=== PATIENT | male | born 1985 | race Caucasian/White ===

== ENCOUNTER 2022-03-06 13:40 | Outpatient (REF) | payer BC, SELFPAY ==
[2022-03-06 14:31] LABS: Hematocrit 44.1 % (42.0-52.0); Hemoglobin 15.2 g/dl (14.0-18.0); Mean Corpuscular HGB Conc 34.5 g/dl (31.0-36.0); Mean Corpuscular Hemoglobin 32.3 pg (27.0-33.0); Mean Corpuscular Volume 93.6 fL (80.0-98.0); Mean Platelet Volume 12.7 fL (9.4-12.4); Platelet Count 169 X10*3/uL (160-400); Red Blood Count 4.71 X10*6/uL (4.60-5.80); Red Cell Distribution Width 11.8 % (11.0-16.0); White Blood Count 6.9 X10*3/uL (4.8-10.8)
[2022-03-06 16:09] LABS: Alanine Aminotransferase 17 U/L (0-40); Albumin Level 4.8 g/dL (3.5-5.0); Alkaline Phosphatase 40 U/L (39-117); Anion Gap 14 (12-20); Aspartate Amino Transferase 17 U/L (5-37); Bilirubin Total 0.6 mg/dL (0.0-1.0); Blood Urea Nitrogen 23 mg/dL (9-16); Calcium 9.9 mg/dL (8.4-10.2); Carbon Dioxide 27 mmol/L (22-29); Chloride 104 mmol/L (96-108); Estimated Glomerular Filt Rate > 60; Glucose Random 88 mg/dL (60-115); Potassium 4.4 mmol/L (3.3-5.1); Sodium 141 mmol/L (135-145); Total Protein 7.8 g/dL (6.5-8.0)
[2022-03-07 07:30] LABS: ~HepC Num1 0.16 S/CO (0.00-0.79); ~Hepatitis C Antibody Nonreactive (Nonreactive)
== END 2022-03-06 13:41 | disposition home or self-care (01) ==
LOC: HO.LAB 13:40
PROVIDERS: PCP Registered Nurse; Visit Provider Internal Medicine
DX: K92.1 Melena (principal)
CPT/HCPCS: 36415; 80053; 85027; 86803

== ENCOUNTER 2024-06-12 09:32 | Outpatient (AMB) | payer BC, SELFPAY ==
[2024-06-12 09:41] VITALS: BP 128/77; PULSE 83; O2SAT 99; BMI 39.2
--- NOTE | 2024-06-12 09:41 | MHC.OFFVIS ---
Vital Signs 06/12/24 09:41 Height 5 ft 7 in Weight 250 lb 3.594 oz BMI 39.2 BP 128/77 Blood Pressure Location Lt brachial Position Sitting Pulse 83 Pulse Source Doppler Pulse Oximetry (%) 99 Oxygen Delivery Method Room Air Intake Visit Reasons: asthma Allergies cat dander Allergy (Mild, Verified 06/12/24 09:45) Unknown HPI HPI asthma: Details: 38-year-old gentleman, vaping, but trying to quit, with underlying history of exercise induced asthma since teenage years, KULDIP on CPAP referred for evaluation pulmonary complaints. Patient states that over the last 2-3 months he has been having persistent bronchitic symptoms with cough, sputum production, and intermittent wheezing, only somewhat relieved by his albuterol MDI. 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 Patient does have family history of asthma in his mother. He currently has rabbit as a pet. Patient does have significant environmental allergies that get worse around spring time. PFS Surgical History Hx of vasectomy Family History Paternal Grandfather Colon cancer Social History (Updated 06/12/24 @ 09:47 by TAWANA Raines) Patient Tobacco Use Status: Never used Tobacco e-Cigarette/Vaping Use: Currently Using Review of Systems Const Denies daytime sleepiness, Denies excessive sweating, Denies fatigue, Denies fever(s), Denies lethargy, Denies malaise, Denies night sweats, Denies snoring and Denies weight loss Eyes Denies blurry vision and Denies itchy eyes ENT Denies nasal congestion, Denies post nasal drip, Denies sinus pain, Denies sinus pressure and Denies other ( Thrush) Card Denies chest pain, Denies pedal edema, Denies dyspnea, Denies orthopnea and Denies paroxysmal nocturnal dyspnea Resp Reports cough, Denies hemoptysis, Reports excessive phlegm production, Denies dyspnea, Denies snoring and Reports wheezing GI Denies abdominal pain and Denies heartburn Musc Denies myalgias, Denies arthralgias and Denies joint swelling Skin/Breast Denies rash Neuro Denies memory loss and Denies seizure-like activity Psych Denies abnormal sleep pattern, Denies anxiety and Denies memory loss Endo Denies excessive sweating, Denies fatigue and Denies heat intolerance Naveen/Lymph Denies easy bruising Aller/Immun Denies itchy eyes, Denies seasonal rhinorrhea and Reports wheezing Physical Exam Vital Signs: Last Vital Signs Pulse 83 06/12/24 09:41 BP 128/77 06/12/24 09:41 Pulse Ox 99 06/12/24 09:41 Oxygen Delivery Method Room Air 06/12/24 09:41 BMI result Body Mass Index 39.2 Const General: no acute distress and alert Nutritional Appearance: not obese Orientation/consciousness: Other orientation findings ( oriented) HEENT Head: Yes atraumatic Eyes General: appearance normal, both eyes and all related structures Sclerae: sclerae normal EOM: EOMs intact bilaterally Neck Neck: Yes supple Lymphatic: no lymphadenopathy noted Resp Effort & Inspection: normal respiratory effort and no use of accessory muscles Auscultation: clear to auscultation bilaterally Cardio Rate: regular rate Rhythm: regular rhythm Heart sounds: no gallops, no murmurs and no rubs Skin General skin exam: other ( warm) Extrem General: No clubbing, No cyanosis and No edema Assessment & Plan Assessment & Plan (1) Asthma: Code(s): J45.909 - Unspecified asthma, uncomplicated Category: Medical Plan: Likely asthma of unclear severity suboptimally controlled on albuterol MDI. Will add Breo and obtain full PFT. Will treat bronchitic exacerbation with a course of azithromycin and prednisone. (2) Environmental allergies: Code(s): Z91.09 - Other allergy status, other than to drugs and biological substances Category: Medical Plan: Will obtain IgE level, CBC with differential, and RAST panel for further evaluation. Orders: Orders Resp Allergy Profile Region I Today J45.909 - Unspecified asthma, uncomplicated, Z91.09 - Other allergy status, other than to drugs and biological substances Complete Blood Count Auto Diff Today Z91.09 - Other allergy status, other than to drugs and biological substances PFT pulmonary function test Today J45.909 - Unspecified asthma, uncomplicated Medications: New fluticasone furoate-vilanterol 200-25 mcg/dose (Breo Ellipta) 1 inh inhalation DAILY 1 ea 6RF J45.909 - Unspecified asthma, uncomplicated azithromycin For 250 mg dose pack: take 500 mg today (day 1), then 250 mg for 4 days (days 2-5) PO 6 tabs 0RF J45.909 - Unspecified asthma, uncomplicated prednisone 40 mg (2 x 20 mg) PO DAILY 10 tabs 0RF J45.909 - Unspecified asthma, uncomplicated Coding Level of Care Code New Pt Level 4 (18543) Diagnoses Asthma J45.909 Environmental allergies Z91.09
--- OUTSIDE RECORDS SUMMARY | 2024-06-12 10:03 | XMS_ITS ---
Author Organization [facility] Address [address], [place] [id number] Care Team Providers Care Bet Taker Name Role Phone FELIX ZHAO Primary Care Provider Rylee Alas Unavailable [phone] ALLERGIES Allergen (clinical drug ingredient) Drug/Non Drug Allergy documented on EMR Reaction Allergy Type Onset Date Status Methotrexate stomach upset , Severity Observation:Mod erate , Drug Allergy Active lumateperone Caplyta panic attack/ sweating Drug Allergy Active REASON FOR REFERRAL Reason Sleep study to [facility] please. History of KULDIP with needing CPAP- has been lost to follow-up Diagnosis 1 Obstructive sleep ap jesu (G47.33) Referral Organization [facility] Referring Provider First Name Rylee Referring Provider Last Name Bishop Referring Provider Speciality Nurse Miguel mcnamara Referred Organization [facility] Referred Address [address], [id number], Referred Provider Specialty Sleep Medici ne General Notes BOWEN, PAUL 0 08/15/2023 03:03:40 PM >appt request, neuro diagnostic form, demographics, insurance info, referral and office note faxed to [facility] [phone] Referral Priority Routine REASON FOR VISIT f/u meds MEDICATIONS Medication SIG (Take, Route, Frequency, Duration) Notes Start Date End Date Status Propranolol HCl 10 MG TAKE 1 TABLET BY MOUTH TWICE A DAY NEEDED for 90 Active Rosuvastatin Calcium 40 MG TAKE 1 TABLET BY MOUTH EVERY DAY FOR 90 DAYS for 90 Active Benzonatate 100 MG 3 x a day Oral benzonatate 1 00 mg capsule 03/27/2022 Active Famotidine 40 MG 1 tablet at bedtime Orally Once a day for 30 day(s) 08/13/2023 Active Divalproex Sodium 500 MG TAKE 1 TAB BY MOUTH IN THE MORNING AND 2 TABS DAILY AT BEDTIME for 60 Active Betamethasone Dipropionate 0.05 % 1 application Externally Once a day for 30 days 08/31/2022 Active ProAir HFA 108 (90 Base) MCG/ACT Inhalation albuterol sulfate HFA 90 mcg/actuation aerosol inhaler *Reorder from Rently[employer] for eRx and Interaction Alerts* 02/01/2022 Active CoQ-10 100 MG 1 capsule Orally once a day for 90 days 09/26/2022 Active Vitamin D-3 125 MCG (5000 UT) Take one tablet by mouth once daily. Oral Vitamin D3 125 mcg (5,000 unit) tablet 02/22/2022 Active cloNIDine HCl 0.1 MG 1 tablet Orally Once a day for 30 day(s) 08/13/2023 Active Ashwagandha 500 MG as directed Orally Active Fluticasone Propionate 50 MCG/ACT 1 spray in each nostril Nasally Once a day Active SOCIAL HISTORY Tobacco Use: Social History Observation Description Date Details (start date - stop date) Former Smoker NA - 08/23/2017 Sex Assigned At : Social History Observation Description Sex Assigned At Unknown Household Question Answer Notes Marital status: Tobacco Use/Smoking Question Answer Notes Tobacco use: former smoker When did you stop smoking? 08/23/2017 Sexual History Question Answer Notes Had sex in the past 12 months (vaginal, oral, or anal)? Yes with Women only PROBLEMS Problem Type ICD Code Onset Dates Problem Status W/U Status Risk SNOMED Code Notes Problem Obstructive sleep apnea (G47.33) Active confirmed 78820382 Problem Gastroesophageal reflux disease without esophagitis (K21.9) Active confirmed 339273079 VITAL SIGNS Blood pressure systolic 142 mm Hg 08/13/19 24 Blood pressure diastolic 92 mm Hg 024 Heart Rate 69 /min 08/13/2023 Height 67 in 08/13/2023 Weight 229.6 lbs 08/13/2023 BMI 35.96 kg/m2 08/13/2023 Oximetry 98 % 08/13/2023 Height-cm 170.18 cm 08/13/2023 Weight-kg 104.14 kg 08/13/2023 PROCEDURES Procedure Date Ordered Date Performed Result Body Sit e POLYSOMNOGRAPHY W/CPAP 08/13/2023 N/A Encounters Encounter Location Date Provider Diagnosis [address], [place] [id number] 08/13/2023 Rylee Alas Obstructive sleep ap jesu G47.33 ; Gastroesophageal reflux disease without esophagitis K21.9 ; Essential (primary) hypertension I10 and Encounter for screening for depression Z13.31 ASSESSMENTS Encounter Date Diagnosis Assessment Notes Treatment Notes Treatment Clinical Notes Section Notes 08/13/2023 Obstructive sleep apnea (ICD-10 - G47.33) Compliant with CPAP/BiPap mask Continue plan of care 08/13/2023 Gastroesophageal reflux disease without esophagitis (ICD-10 - K21.9) Gastroesophageal reflux disease (GERD) is an extremely common condition, affecting nearly one in five [place] adults at least weekly and nearly one in ten daily. It affects women more commonly than men, and the peak ages are from 30 to 60. Symptoms of GERD occur due to esophageal irritation from acidic stomach contents (including pepsin and sometimes bile acids) contacting the esophagus through the lower esophageal sphincter (LES). A variety of symptoms can occur: Retrosternal discomfort (e.g. pain, burning) Acid regurgitation Nausea and/or vomiting Laryngitis Cough Dental erosions Wheezing Difficulty swallowing Normally, the LES only relaxes when one is swallowing food. Otherwise, it has enough tone to limit retrograde flow of acidic contents into the esophagus. With long-term acid exposure, the esophagus may become inflamed (esophagitis) and constrict (stricture), and it can also develop columnar metaplasia (Geiger's esophagus) or adenocarcinoma. There are many factors that cause GERD, and these should be systematically evaluated when creating a treatment plan that aims to cure rather than just treat this disease. The quality of life burden is significant and may be greater than that of congestive heart failure, coronary heart disease, and diabetes. Although the LES itself may appear to be the site of dysfunction, it may not play the primary role in GERD pathogenesis. The problem may be downstream, due to increased intra-abdominal pressure (e.g. from obesity, , restrictive clothing, ascites). It may also be caused by poor GI motility (gastroparesis) or from forces that challenge normal forward motility (recumbent position, bending over). It may also be due to compromised esophageal mucosal barrier (e.g. from low saliva production). This etiology is often overlooked; one study showed that when acid is infused directly into the esophagus, 88% of those with GERD were symptomatic, whereas only 15% of controls without known GERD had symptoms. Studies using proton pump inhibitors (PPIs) and histamine-2 (H2) antagonists show significant benefits in their placebo groups. This supports the notion that the mind has significant potential to affect GERD symptoms. In a large meta-analysis, placebo rates averaged about 20% for pharmaceuticals, indicating that any GERD intervention that one expects benefit will provide a positive response for one in five people independent of the mechanism of action. Creating this positive expectation through a therapeutic clinical relationship can therefore be an important aspect of developing a Personal Health Plan(PHP). Will start Famotidine to see if this helps with symptoms Will order H.Pylori with labs- he will have them done before he leaves today 08/13/2023 Essential (primary) hypertension (ICD-10 - I10) Treatment of hypertension should involve nonpharmacologic therapy (also called lifestyle modification). Dietary salt restriction - In well-controlled randomized trials, the overall impact of moderate sodium reduction is a fall in blood pressure in hypertensive and normotensive individuals of 4.8/2.5 and 1.9/1.1 mmHg, respectively. Weight loss - Weight loss in overweight or obese individuals can lead to a significant fall in blood pressure independent of exercise. DASH diet - The Dietary Approaches to Stop Hypertension (DASH) dietary pattern is high in vegetables, fruits, low-fat dairy products, whole grains, poultry, fish, and nuts and low in sweets, sugar-sweetened beverages, and red meats. The DASH dietary pattern is consequently rich in potassium, magnesium, calcium, protein, and fiber but low in saturated fat, total fat, and cholesterol. Combining the DASH dietary pattern with modest sodium restriction produced an additive antihypertensive effect. Exercise - Aerobic, dynamic resistance and isometric resistance exercise can decrease systolic and diastolic pressure by, on average, 4 to 6 mmHg and 3 mmHg, respectively, independent of weight loss. Limited alcohol intake - Women who consume two or more alcoholic beverages per day and men who have three or more drinks per day have a significantly increased incidence of hypertension compared with nondrinkers. 08/13/2023 Encounter for screening for depression (ICD-10 - Z13.31) PHQ9 Score: 21 Severe risk for major depressive disorder. Denies SI/HI Will add medication- close FU 4 weeks PLAN OF TREATMENT Medication Medication Name Sig Start Date Stop Date Notes Famotidine 40 MG 1 tablet at bedtime Orally Once a day for 30 day(s) 08/13/2023 cloNIDine HCl 0.1 MG 1 tablet Orally Onc e a day for 30 day(s) 08/13/2023 Treatment Notes Assessment Notes Obstructive sleep apnea Compliant with CPAP/BiPap mask Continue plan of care Gastroesophageal reflux dise ase without esophagitis Gastroesophageal reflux disease (GERD) is an extremely common condition, affecting nearly one in five [place] adults at least weekly and nearly one in ten daily. It affects women more commonly than men, and the peak ages are from 30 to 60. Symptoms of GERD occur due to esophageal irritation from acidic stomach contents (including pepsin and sometimes bile acids) contacting the esophagus through the lower esophageal sphincter (LES). A variety of symptoms can occur: Retrosternal discomfort (e.g. pain, burning) Acid regurgitation Nausea and/or vomiting Laryngitis Cough Dental erosions Wheezing Difficulty swallowing Normally, the LES only relaxes when one is swallowing food. Otherwise, it has enough tone to limit retrograde flow of acidic contents into the esophagus. With long-term acid exposure, the esophagus may become inflamed (esophagitis) and constrict (stricture), and it can also develop columnar metaplasia (Geiger's esophagus) or adenocarcinoma. There are many factors that cause GERD, and these should be systematically evaluated when creating a treatment plan that aims to cure rather than just treat this disease. The quality of life burden is significant and may be greater than that of congestive heart failure, coronary heart disease, and diabetes. Although the LES itself may appear to be the site of dysfunction, it may not play the primary role in GERD pathogenesis. The problem may be downstream, due to increased intra-abdominal pressure (e.g. from obesity, , restrictive clothing, ascites). It may also be caused by poor GI motility (gastroparesis) or from forces that challenge normal forward motility (recumbent position, bending over). It may also be due to compromised esophageal mucosal barrier (e.g. from low saliva production). This etiology is often overlooked; one study showed that when acid is infused directly into the esophagus, 88% of those with GERD were symptomatic, whereas only 15% of controls without known GERD had symptoms. Studies using proton pump inhibitors (PPIs) and histamine-2 (H2) antagonists show significant benefits in their placebo groups. This supports the notion that the mind has significant potential to affect GERD symptoms. In a large meta-analysis, placebo rates averaged about 20% for pharmaceuticals, indicating that any GERD intervention that one expects benefit will provide a positive response for one in five people independent of the mechanism of action. Creating this positive expectation through a therapeutic clinical relationship can therefore be an important aspect of developing a Personal Health Plan(PHP). Will start Famotidine to see if this helps with symptoms Will order H.Pylori with labs- he will have them done before he leaves today Essential (primary) hypertension Treatment of hypertension should involve nonpharmacologic therapy (also called lifestyle modification). Dietary salt restriction - In well-controlled randomized trials, the overall impact of moderate sodium reduction is a fall in blood pressure in hypertensive and normotensive individuals of 4.8/2.5 and 1.9/1.1 mmHg, respectively. Weight loss - Weight loss in overweight or obese individuals can lead to a significant fall in blood pressure independent of exercise. DASH diet - The Dietary Approaches to Stop Hypertension (DASH) dietary pattern is high in vegetables, fruits, low-fat dairy products, whole grains, poultry, fish, and nuts and low in sweets, sugar-sweetened beverages, and red meats. The DASH dietary pattern is consequently rich in potassium, magnesium, calcium, protein, and fiber but low in saturated fat, total fat, and cholesterol. Combining the DASH dietary pattern with modest sodium restriction produced an additive antihypertensive effect. Exercise - Aerobic, dynamic resistance and isometric resistance exercise can decrease systolic and diastolic pressure by, on average, 4 to 6 mmHg and 3 mmHg, respectively, independent of weight loss. Limited alcohol intake - Women who consume two or more alcoholic beverages per day and men who have three or more drinks per day have a significantly increased incidence of hypertension compared with nondrinkers. Encounter for screening for depression PHQ9 Score: 21 Severe risk for major depressive disorder. Denies SI/HI Will add medication- close FU 4 weeks Pending Test Test Name Order Date POLYSOMNOGRAPHY W/CPAP 08/13/2023 Future Test Test Name Order Date HELICOBACTER PYLORI, UREA BREATH TEST ([id number]) 08/13/2023 Referrals Referral Date Details Sleep study to [facility] please. History of KULDIP with needing CPAP- has been lost to follow-up , [address] [place] [address], [place], [place], [phone], @[employer], Next Appt Details Follow Up: 2 Weeks, Reason: Medication change- tele Progress Notes * RAMIRO LAGUNADOB:1985 (37 yo M)Acc No.[id number]:08/13/2023 Progress Notes Patient:??RAMIRO LAGUNA Provider:??Rylee Alas DNP :1985?Age:37 Y?Sex:Ma le Date:08/13/2023 Phone: Address: [address], [facility] [place], [id number] Pcp:FELIX ZHAO Subjective: * Chief Complaints: * ?F/u meds * HPI: ?Patient Care Team:? Therapist- Dr Cat Gore [place]. ?Visit info:? Ramiro presents today for f/u med review. ?He states he has been vomiting Q a.m. for past 6 months - mostly bile/phlegm. No known cause. He does take Rosuvastatin and Divalproex in evening and will taste the medication in a.m. with vomiting. Usually is just one episode of vomiting. Ramiro also states that his anxiety has been through the roof - mostly work related. Depression escalates with increased anxiety, and notes chest pains recently as well. He's unsure if needs Rx dose adjustment or change to help alleviate symptoms. ?PHQ9 provided to patient for completion. ?Chest tightness occasionally- comes and goes- dull ?Ringing in right ear and associated headache-daily headaches for the last couple of weeks ?Continuously feels like his body is vibrating ?Sleep apnea- states that he has a very old machine and has not followed up with sleep medicine in years- which could be contributing to many of his symtpoms. ?Can't think- losing short term memory. * ROS:?all systems reviewed and are non-contributory unless specified in the HPI. * Medical History:?? * Surgical History:??vasectomy 26 broken bones in past (Sports) * Hospitalization/Major Diagno stic Procedure:?? * Family History:??Father: Hea rt Disease , Other CA .??Siblings: brother: brother:Allergic to Pectin .??Mother: Heart Disease , Asthma , High Cholesterol .??Paternal Grandfather: Colon CA .??Paternal Grandmother: Dementia .??Maternal Grandfather: Heart Disease .??Maternal Grandmother: Alzheimer's .?? * Social History:?Drugs/Alcohol:??Drugs??Have you used drugs other than those for medical reasons in the past 12 months???No.??Do you smoke marijuana?: Denies. Do you drink alcohol?: Socially. ?Household:??Household??Marital status:??.?Miscellaneous:??Occupation: works full-time; constuction. * Medications:??TakingFluticas one Propionate 50 MCG/ACT Suspension 1 spray in each nostril Nasally Once a day Ashwagandha 500 MG Capsule as directed Orally CoQ-10 100 MG Capsule 1 capsule Orally once a day Betamethasone Dipropionate 0.05 % Ointment 1 application Externally Once a day ProAir HFA 108 (90 Base) MCG/ACT Aerosol Solution Inhalation , Notes to Pharmacist: albuterol sulfate HFA 90 mcg/actuation aerosol inhaler *Reorder from [employer] for eRx and Interaction Alerts*Vitamin D-3 125 MCG (5000 UT) Tablet Take one tablet by mouth once daily. Oral , Notes to Pharmacist: Vitamin D3 125 mcg (5,000 unit) tabletBenzonatate 100 MG Capsule 3 x a day Oral , Notes to Pharmacist: benzonatate 100 mg capsulePropranolol HCl 10 MG Tablet TAKE 1 TABLET BY MOUTH TWICE A DAY NEEDED Rosuvastatin Calcium 40 MG Tablet TAKE 1 TABLET BY MOUTH EVERY DAY FOR 90 DAYS Divalproex Sodium 500 MG Tablet Delayed Release TAKE 1 TAB BY MOUTH IN THE MORNING AND 2 TABS DAILY AT BEDTIME Medication List reviewed and reconciled with the patientTaking Fluticasone Propionate 50 MCG/ACT Suspension 1 spray in each nostril Nasally Once a day Taking Ashwagandha 500 MG Capsule as directed Orally Taking CoQ-10 100 MG Capsule 1 capsule Orally once a day Taking Betamethasone Dipropionate 0.05 % Ointment 1 application Externally Once a day Taking ProAir HFA 108 (90 Base) MCG/ACT Aerosol Solution Inhalation , Notes to Pharmacist: albuterol sulfate HFA 90 mcg/actuation aerosol inhaler *Reorder from [employer]ently[employer] for eRx and Interaction Alerts*Taking Vitamin D-3 125 MCG (5000 UT) Tablet Take one tablet by mouth once daily. Oral , Notes to Pharmacist: Vitamin D3 125 mcg (5,000 unit) tabletTaking Benzonatate 100 MG Capsule 3 x a day Oral , Notes to Pharmacist: benzonatate 100 mg capsuleTaking Propranolol HCl 10 MG Tablet TAKE 1 TABLET BY MOUTH TWICE A DAY NEEDED Taking Rosuvastatin Calcium 40 MG Tablet TAKE 1 TABLET BY MOUTH EVERY DAY FOR 90 DAYS Taking Divalproex Sodium 500 MG Tablet Delayed Release TAKE 1 TAB BY MOUTH IN THE MORNING AND 2 TABS DAILY AT BEDTIME Medication List reviewed and reconciled with the patient * Allergies:??Methotrexate: st omach upset , Severity Observation:Moderate , - AllergyCaplyta: panic attack/ sweating - Allergy - Criticality Low Objective: * Vitals:??BP:142/92mm Hg, HR: 69/min, Oxygen sat %:98%, Wt:229.6lbs, Wt-k.14 kg, Ht: 67 in, Ht-cm: 170.18 cm, BMI:35.96Index, Body Surface Area: 2.22. * Examination: ?General Examination: ?General appearance:??alert, pleasant, well-nourished and in no acute distress.?Head:??normocephalic, atraumatic.?Eyes:??pupils equal, round, reactive to light and accommodation.?Ears:??normal.?Nose:??nares patent, no lesions, sinuses nontender bilaterally, clear discharge.?Oral cavity:??normal, with good dentition, gums are normal, mucosa moist, no lesions.?Heart:??regular rate without murmurs, gallops, clicks or rubs, S1 and S2 are normal and no S3 and S4 gallop.?Lungs:??clear to auscultation bilaterally, with good air movement and no rales, rhonchi or wheezes.?Peripheral pulses:??normal 2+ arterial pulses.?Neurologic:??gait normal, normal upper and lower extremity motor strength and function, normal exam with no motor or sensory deficits.?Psych:??alert and oriented x 3, cognitive function intact, cooperative with exam, maintains good eye contact, with good judgement and insight, normal affect / mood, thought process is logical and goal directed without suidical ideation or delusions.? Assessment: * Assessment: 1.??Obstructive sleep apnea - G47.33 (Primary)??2.??Gastroesophageal reflux disease without esophagitis - K21.9??3.??Essential (primary) hypertension - I10??4.??Encounter for screening for depression - Z13.31?? Plan: * Treatment: 2.??Gastroesophageal reflux disease without esophagitis?? Start Famotidine Tablet, 40 MG, 1 tablet at bedtime, Orally, Once a day, 30 day(s), 30.?LAB: HELICOBACTER PYLORI, UREA BREATH TEST ([id number]) (Ordered for 08/13/2023) Notes: Gastroesophageal reflux disease (GERD) is an extremely common condition, affecting nearly one in five [place] adults at least weekly and nearly one in ten daily. It affects women more commonly than men, and the peak ages are from 30 to 60. Symptoms of GERD occur due to esophageal irritation from acidic stomach contents (including pepsin and sometimes bile acids) contacting the esophagus through the lower esophageal sphincter (LES). A variety of symptoms can occur: Retrosternal discomfort (e.g. pain, burning) Acid regurgitation Nausea and/or vomiting Laryngitis Cough Dental erosions Wheezing Difficulty swallowing Normally, the LES only relaxes when one is swallowing food. Otherwise, it has enough tone to limit retrograde flow of acidic contents into the esophagus. With long-term acid exposure, the esophagus may become inflamed (esophagitis) and constrict (stricture), and it can also develop columnar metaplasia (Geiger's esophagus) or adenocarcinoma. There are many factors that cause GERD, and these should be systematically evaluated when creating a treatment plan that aims to cure rather than just treat this disease. The quality of life burden is significant and may be greater than that of congestive heart failure, coronary heart disease, and diabetes. Although the LES itself may appear to be the site of dysfunction, it may not play the primary role in GERD pathogenesis. The problem may be downstream, due to increased intra-abdominal pressure (e.g. from obesity, , restrictive clothing, ascites). It may also be caused by poor GI motility (gastroparesis) or from forces that challenge normal forward motility (recumbent position, bending over). It may also be due to compromised esophageal mucosal barrier (e.g. from low saliva production). This etiology is often overlooked; one study showed that when acid is infused directly into the esophagus, 88% of those with GERD were symptomatic, whereas only 15% of controls without known GERD had symptoms. Studies using proton pump inhibitors (PPIs) and histamine-2 (H2) antagonists show significant benefits in their placebo groups. This supports the notion that the mind has significant potential to affect GERD symptoms. In a large meta-analysis, placebo rates averaged about 20% for pharmaceuticals, indicating that any GERD intervention that one expects benefit will provide a positive response for one in five people independent of the mechanism of action. Creating this positive expectation through a therapeutic clinical relationship can therefore be an important aspect of developing a Personal Health Plan(PHP). Will start Famotidine to see if this helps with symptoms Will order H.Pylori with labs- he will have them done before he leaves today? 3.??Essential (primary) hype rtension?? Start cloNIDine HCl Tablet, 0.1 MG, 1 tablet, Orally, Once a day, 30 day(s), 30.? Notes: Treatment of hypertension should involve nonpharmacologic therapy (also called lifestyle modification). Dietary salt restriction - In well-controlled randomized trials, the overall impact of moderate sodium reduction is a fall in blood pressure in hypertensive and normotensive individuals of 4.8/2.5 and 1.9/1.1 mmHg, respectively. Weight loss - Weight loss in overweight or obese individuals can lead to a significant fall in blood pressure independent of exercise. DASH diet - The Dietary Approaches to Stop Hypertension (DASH) dietary pattern is high in vegetables, fruits, low-fat dairy products, whole grains, poultry, fish, and nuts and low in sweets, sugar-sweetened beverages, and red meats. The DASH dietary pattern is consequently rich in potassium, magnesium, calcium, protein, and fiber but low in saturated fat, total fat, and cholesterol. Combining the DASH dietary pattern with modest sodium restriction produced an additive antihypertensive effect. Exercise - Aerobic, dynamic resistance and isometric resistance exercise can decrease systolic and diastolic pressure by, on average, 4 to 6 mmHg and 3 mmHg, respectively, independent of weight loss. Limited alcohol intake - Women who consume two or more alcoholic beverages per day and men who have three or more drinks per day have a significantly increased incidence of hypertension compared with nondrinkers.? 4.??Encounter for screening for depression?? Notes: PHQ9 Score: 21 Severe risk for major depressive disorder. Denies SI/HI Will add medication- close FU 4 weeks? * Procedure Codes:?? * Preventive Medicine:?Last CPE- August 2021- DUE Colonoscopy- nvr due Endo Nvr Covid Vac- no Flu shot - no 02/17/22: Tcol 202; HDL 49; LDL 123; trigs 180; APO B 112; insulin 7.1; A1c 5.0 09/21/2022: Tcol 256; HDL 54; LDL 174; trigs 138; APO B 141. * Follow Up:??2 Weeks (Reason: Medication change- tele) * Billing Information: * Visit Code:?? 93320 Office Visit, Est Pt., Level 3. * Procedure Codes:?? * Sign off status: Completed true * Provider:??Rylee Alas DNP Date:?? History and Physical Notes * HPI (History of Present Illness) Category Sub-Category Detail Notes Category Not es Patient Care Team Therapist- Dr Cat Gore [place] Examination Category Sub-Category Detail Notes Category Not es General Examination General appearance: alert, p leasant, well-nourished and in no acute distress Head: normocephalic, atrau matic Eyes: pupils equal, round, reactive to light and accommodation Ears: normal Nose: nares patent, no les ions, sinuses nontender bilaterally, clear discharge Heart: regular rate without murmurs, gallops, clicks or rubs, S1 and S2 are normal and no S3 and S4 gallop Lungs: clear to auscultatio n bilaterally, with good air movement and no rales, rhonchi or wheezes Neurologic: gait normal, normal upper and lower extremity motor strength and function, normal exam with no motor or sensory deficits Peripheral pulses: normal 2+ arterial p ulses Psych: alert and oriented x 3, cognitive function intact, cooperative with exam, maintains good eye contact, with good judgement and insight, normal affect / mood, thought process is logical and goal directed without suidical ideation or delusions Oral cavity: normal, with good de ntition, gums are normal, mucosa moist, no lesions Consultation Request Notes Referral Date Referring Provider Referred Provider Not es 08/13/2023 Rylee Alas , Sleep study t o [facility] please. History of KULDIP with needing CPAP- has been lost to follow-up
--- OUTSIDE RECORDS SUMMARY | 2024-06-12 10:03 | XMS_ITS | Encounter Summary ---
Author Organization [facility] Address [phone] [facility] [place] [address] Care Team Providers Care It Security Consultant Name Role Phone Liz Cazares MD Primary Care Provider Encounter Details Date Type Department Care Team (Late st Contact Info) Description 03/25/2022 Procedure Pass [facility], Ct Scan - [address] [id number] Social History Tobacco Use Types Packs/Day Years Used Date Smoking Tobacco: Never Assessed Sex and Gender Information Value Date Recorded Sex Assigned at Not on file Gender Identity Not on file Sexual Orientation Not on file documented as of this encounter Plan of Treatment Not on file documented as of this encounter Visit Diagnoses Not on filedocumented in this encounter Additional Health Concerns Infection Onset Date Last Indicated Resolved Time CoV-Risk 03/25/2022 03/25/2022 04/05/2022 1:23 AM EST documented as of this encounter Care Teams It Security Consultant Relationship Specialty Start Date End Date Liz Cazares MD [address] [place] [id number] PCP - General Family Medicine 03/25/22 documented as of this encounter Additional Source Comments The information contained in this document represents components of the legal health record. It is not the complete legal health record.[facility]
--- OUTSIDE RECORDS SUMMARY | 2024-06-12 10:03 | XMS_ITS | Clinical Summary ---
Author Organization [facility] Address [phone] [facility] [place] [address] [place] [address] Care Team Providers Care Bath Solution Maker Name Role Phone Liz Cazares MD Primary Care Provider Allergies Active Allergy Reactions Criticality Noted Date Comments Lumateperone Feeling Irritable Low 03/25/2022 Medications No known medications Social History Tobacco Use Types Packs/Day Years Used Date Smoking Tobacco: Never Assessed Education Answer Date Recorded Are you interested in more education? Not on kobe e 08/18/2022 Are you concerned about learning? Not on file 08/18/2022 No 08/18/2022 No 08/18/2022 Digital Access Answer Date Recorded No 09/16/2022 No 09/16/2022 No 09/16/2022 Reliable internet access at home? Not on file 09/16/2022 Device with a working camera? Not on file Sex and Gender Information Value Date Recorded Sex Assigned at Not on file Gender Identity Not on file Sexual Orientation Not on file Last Filed Vital Signs Vital Sign Reading Time Taken Comments Blood Pressure 149/84 03/25/2022 4:10 PM EST Pulse 70 03/25/2022 4:10 PM EST Temperature 36.5 ??C (97.7 ??F) 03/25/2022 4:10 PM ES T Respiratory Rate 15 03/25/2022 4:10 PM EST Oxygen Saturation 99% 03/25/2022 4:10 PM EST Inhaled Oxygen Concentration - - Weight 104.3 kg (230 lb) 03/25/2022 1:04 PM EST Height 170.2 cm (5' 7 ) 03/25/2022 1:04 PM EST Body Mass Index 36.02 03/25/2022 1:04 PM EST Plan of Treatment Health Maintenance Due Date Last Done Comments Adult Td,Tdap Booster 1983 LIPID PANEL 1983 DEPRESSION SCREENING 1995 SMOKING Hx and SMOKELESS TOB ACCO SCREENING 10/02/1996 HEPATITIS B SCREENING 10/02/2001 HEPATITIS C SCREENING 10/02/2001 HIV ONE-TIME SCREENING (18-6 5 YEARS) 10/02/2001 HEPATITIS B VACCINES (1 of 3 - 19+ 3-dose series) 10/02/2002 INFLUENZA VACCINE (#1) 2023 COVID-19 VACCINE (1 - 2023-2 5 season) 2023 SCREENING FOR DIABETES 03/25/2025 03/25/2022 HEPATITIS A VACCINES Aged Out No long er eligible based on patient's age to complete this topic HIB VACCINES Aged Out No longer eligi ble based on patient's age to complete this topic MENINGOCOCCAL VACCINES (ACWY) Aged Out No longer eligible based on patient's age to complete this topic PNEUMOCOCCAL VACCINES (0-49 years) Aged Out No longer eligible based on patient's age to complete this topic Medical Devices Not on file Care Teams Bath Solution Maker Relationship Specialty Start Date End Date Liz Cazares MD [address] [place] [phone] PCP - General Family Medicine 03/25/22 Additional Source Comments The information contained in this document represents components of the legal health record. It is not the complete legal health record.[facility]
--- OUTSIDE RECORDS SUMMARY | 2024-06-12 10:03 | XMS_ITS ---
Author Organization [facility], [facility] Address [address], [place] [id number] Care Team Providers Care Shuttleless Loom Weaver Name Role Phone FELIX ZHAO Primary Care Provider [phone] Rylee Alas [phone] REASON FOR VISIT CPE Encounters Encounter Location Date Provider Diagnosis [address] [phone] 11/28/2023 Rylee Alas PLAN OF TREATMENT No Information Progress Notes * JASEÁLVARO CHAVESDOB:1985 (38 yo M)Acc No.[id number]:11/28/2023 Progress Note Patient:??ÁLVARO LAGUNA Provider:??Rylee Alas DNP :1985?Age:38 Y?Sex:Ma le Date:11/28/2023 Phone: Address:[address], [place], [place] Pcp:FELIX ZHAO Subjective: * Chief Complaints: * ?1. CPE. * Medical History:?? Objective: Assessment: Plan: * Treatment: Care Plan: * Problems:?? * Billing Information: * Visit Code:?? * Procedure Codes:?? * Sign off status: Pending * Provider:??Rylee Alas DNP Date:??11/2023
--- OUTSIDE RECORDS SUMMARY | 2024-06-12 10:04 | XMS_ITS ---
Author Organization [facility] Address [address] [place] [id number] Care Team Providers Care Piper Helper Name Role Phone CECE FELIX Primary Care Provider Rylee Alas Unavailable [phone] ALLERGIES Allergen (clinical drug ingredient) Drug/Non Drug Allergy documented on EMR Reaction Allergy Type Onset Date Status Methotrexate stomach upset , Severity Observation:Mod erate , Drug Allergy Active lumateperone Caplyta panic attack/ sweating Drug Allergy Active REASON FOR VISIT F/U MEDS MEDICATIONS Medication SIG (Take, Route, Frequency, Duration) Notes Start Date End Date Status Rosuvastatin Calcium 40 MG TAKE 1 TABLET BY MOUTH EVERY DAY FOR 90 DAYS Active Vitamin D-3 125 MCG (5000 UT) Take one tablet by mouth once daily. Oral Vitamin D3 125 mcg (5,000 unit) tablet 02/22/2022 Active CoQ-10 100 MG 1 capsule Orally once a day 09/26/2022 Active cloNIDine HCl 0.1 MG 1 tablet Orally Once a day for 30 days 08/13/2023 Active Betamethasone Dipropionate 0.05 % 1 application Externally Once a day for 30 days 08/31/2022 12/28/2023 Active Propranolol HCl 10 MG TAKE 1 TABLET BY MOUTH TWICE A DAY NEEDED for 90 Active Benzonatate 100 MG 3 x a day Oral benzonatate 1 00 mg capsule 03/27/2022 Active ProAir HFA 108 (90 Base) MCG/ACT Inhalation albuterol sulfate HFA 90 mcg/actuation aerosol inhaler *Reorder from [employer] for eRx and Interaction Alerts* 02/01/2022 Active Ashwagandha 500 MG as directed Orally Active Divalproex Sodium 500 MG TAKE 1 TAB BY MOUTH IN THE MORNING AND 2 TABS DAILY AT BEDTIME 60 for 60 Active Famotidine 40 MG 1 tablet at bedtime Orally Once a day for 90 days 08/13/2023 Active Fluticasone Propionate 50 MCG/ACT 1 spray [...] W/U Status Risk SNOMED Code Notes Problem Psoriasis (L40.9) Active confirmed 9014 002 Problem Primary hypertension (I10) Active confirmed 82569830 Problem Vitamin D deficiency (E55.9) Active confirmed 19004534 VITAL SIGNS Height 67 in 08/30/2023 Height-cm 170.18 cm 08/30/2023 Encounters Encounter Location Date Provider Diagnosis [address] [id number] 08/30/2023 Rylee Alas Psoriasis L40.9 ; Primary hypertension I10 ; Mixed hyperlipidemia E78.2 ; Vitamin D deficiency E55.9 ; Encounter to discuss test results Z71.2 and Gastroesophageal reflux disease without esophagitis K21.9 ASSESSMENTS Encounter Date Diagnosis Assessment Notes Treatment Notes Treatment Clinical Notes Section Notes 08/30/2023 Psoriasis (ICD-10 - L40.9) 08/30/2023 Primary hypertension (ICD-10 - I10) Continue medication as directed Low-salt diet Weight management Regular exercise Yearly microalbumin 08/30/2023 Mixed hyperlipidemia (ICD-10 - E78.2) Continue current statin Low fat, low cholesterol diet Exercise Check lipids, LFTs 08/30/2023 Vitamin D deficiency (ICD-10 - E55.9) Increase Vit D rich foods Check levels periodically Supplement as indicated 08/30/2023 Encounter to discuss test results (ICD-10 - Z71.2) All labs were reviewed and the results were explained to the patient in detail. Total time with patient >20 minutes which includes education and coordination of care. 08/30/2023 Gastroesophageal reflux disease without esophagitis (ICD-10 - K21.9) Well controlled on current med regimen Continue to limit caffeine, high fat, spicy foods Limit ibuprofen/NSAIDs PLAN OF TREATMENT Medication Medication Name Sig Start Date Stop Date Notes Rosuvastatin Calcium 40 MG TAKE 1 TABLET BY MOUTH EVERY DAY FOR 90 DAYS Vitamin D-3 125 MCG (5000 UT) Take one tablet by mouth once daily. Oral 02/22/2022 Vitamin D3 125 mcg (5,000 unit) tablet CoQ-10 100 MG 1 capsule Orally onc e a day 09/26/2022 cloNIDine HCl 0.1 MG 1 tablet Orally Onc e a day for 30 days 08/13/2023 Betamethasone Dipropionate 0.05 % 1 application Externally Once a day for 30 days 08/31/2022 12/28/2023 Famotidine 40 MG 1 tablet at bedtime Orally Once a day for 90 days 08/13/2023 Treatment Notes Assessment Notes Primary hypertension Continue medication as directed Low-salt diet Weight management Regular exercise Yearly microalbumin Mixed hyperlipidemia Continue current statin Low fat, low cholesterol diet Exercise Check lipids, LFTs Vitamin D deficiency Increase Vit D rich foods Check levels periodically Supplement as indicated Encounter to discuss test results All la bs were reviewed and the results were explained to the patient in detail. Total time with patient >20 minutes which includes education and coordination of care. Gastroesophageal reflux dise ase without esophagitis Well controlled on current med regimen Continue to limit caffeine, high fat, spicy foods Limit ibuprofen/NSAIDs Next Appt Details Follow Up: --, Reason: unsur e if able to join membership program Progress Notes * JASE, RAMIRODOB:1985 (37 yo M)Acc No.[id number]:08/30/2023 Progress Note Patient:??RAMIRO LAGUNA Provider:??Rylee Alas DNP :1985?Age:37 Y?Sex:Ma le Date:08/30/2023 Phone: Address: [address] [facility] [id number] Pcp:FELIX ZHAO Subjective: * Chief Complaints: * ?F/U MEDS * HPI: ?Patient Care Team:? Therapist- Dr Cat Gore [place]. ?Visit info:? Virtual Care Communication method: both audio and video ?Patient's location during visit: home ?Provider's location during visit: office ?Verbal Consent Obtained: We know that your privacy is very important, and we want you to know that we take all steps to make sure your privacy is protected, including all confidentiality protections under the law. [facility]'s virtual care platforms are HIPAA compliant and meet other (federal and state) privacy and security laws. Even though your communications with [facility] are private and secure, there is always some risk with any information that is transmitted through the internet. ?Ramiro presents via video today to discuss how he is tolerating the Clonidine and for Lab Review. He states that he feels so much better on the Clonidine, he states that he has not vomited since his last visit at the office. Requesting refill on psoriasis ointment. * ROS:?all systems reviewed and are non-contributory [...] HFA 90 mcg/actuation aerosol inhaler *Reorder from [facility] for eRx and Interaction Alerts*Vitamin D-3 125 [...] BY MOUTH EVERY DAY FOR 90 DAYS Famotidine 40 MG Tablet 1 tablet at bedtime Orally Once a day cloNIDine HCl 0.1 MG Tablet 1 tablet Orally Once a day Divalproex Sodium 500 MG Tablet Delayed Release TAKE 1 TAB BY MOUTH IN THE MORNING AND 2 TABS DAILY AT BEDTIME 60 Taking Fluticasone Propionate 50 MCG/ACT Suspension 1 spray [...] HFA 90 mcg/actuation aerosol inhaler *Reorder from [facility] for eRx and Interaction Alerts*Taking Vitamin D-3 [...] MOUTH EVERY DAY FOR 90 DAYS Taking Famotidine 40 MG Tablet 1 tablet at bedtime Orally Once a day Taking cloNIDine HCl 0.1 MG Tablet 1 tablet Orally Once a day Taking Divalproex Sodium 500 MG Tablet Delayed Release TAKE 1 TAB BY MOUTH IN THE MORNING AND 2 TABS DAILY AT BEDTIME 60 * Allergies:??Methotrexate: st omach upset , Severity Observation:Moderate , - AllergyCaplyta: panic attack/ sweating - Allergy - Criticality Low Objective: * Vitals:??BP: Not Taken - Tel [facility], Ht: 67 in, Ht-cm: 170.18 cm. * ?Past Orders: ?Lab:CARDIO IQ(R) APOLI POPROTEIN B ([id number]) (Order Date - 08/06/2023) (Collection Date & Time - 08/13/2023 03:22 PM) ? Value Reference Range ?APOLIPOPROTEIN B 70 <90 - mg/dL ?Lab:CARDIO IQ(R) APOLI POPROTEIN A1 (68796) (Order Date - 08/06/2023) (Collection Date & Time - 08/13/2023 03:22 PM) ? Value Reference Range ?APOLIPOPROTEIN A1 142 >114 - mg/dL ?Lab:CARDIO IQ(R) HEMOG LOBIN A1c (22119) (Order Date - 08/06/2023) (Collection Date & Time - 08/13/2023 03:22 PM) ? Value Reference Range ?HEMOGLOBIN A1c 5.2 <5.7 - % ?Lab:CARDIO IQ(R) HOMOC YSTEINE (76211) (Order Date - 08/06/2023) (Collection Date & Time - 08/13/2023 03:22 PM) ? Value Reference Range ?HOMOCYSTEINE 10.0 <11.4 - umol/L ?Lab:CARDIO IQ(R) HS CR P ([id number]) (Order Date - 08/06/2023) (Collection Date & Time - 08/13/2023 03:22 PM) ? Value Reference Range ?HS CRP <0.30 <1.0 - mg/L ?Lab:CARDIO IQ(R) INSUL IN ([id number]) (Order Date - 08/06/2023) (Collection Date & Time - 08/13/2023 03:22 PM) ? Value Reference Range ?INSULIN 6.4 <18. 5 - uIU/mL ?Lab:CARDIO IQ(R) LIPID PANEL ([id number]) (Order Date - 08/06/2023) (Collection Date & Time - 08/13/2023 03:22 PM) ? Value Reference Range ?TRIGLYCERIDES 86 <150 - mg/dL ?CHOLESTEROL, TOTAL 143 <200 - mg/dL ?HDL CHOLESTEROL 52 >39 - mg/dL ?LDL-CHOLESTEROL 74 <100 - mg/dL (calc) ?CHOL/HDLC RATIO 2.8 <5.0 - calc ?NON HDL CHOLESTEROL 91 <130 - mg/dL (calc) ?Lab:CARDIO IQ(R) LIPOP ROTEIN (a) ([id number]) (Order Date - 08/06/2023) (Collection Date & Time - 08/13/2023 03:22 PM) ? Value Reference Range ?LIPOPROTEIN (a) 63 <75 - nmol/L ?Lab:CARDIO IQ(R) VITAM IN D, 25 HYDROXY (75676) (Order Date - 08/06/2023) (Collection Date & Time - 08/13/2023 03:22 PM) ? Value Reference Range ?VITAMIN D, 2 5-OH, D2 <4 - ng/mL ?VITAMIN D, 2 5-OH, D3 27 - ng/mL ?VITAMIN D, 2 5-OH, TOTAL 27 L 30-100 - ng/mL ?Lab:CBC (INCLUDES DIFF /PLT) ([id number]) (Order Date - 08/06/2023) (Collection Date & Time - 08/13/2023 03:22 PM) ? Value Reference Range ?WHITE BLOOD CELL COUNT 5.8 3.8-10.8 - Thousand/ uL ?RED BLOOD CE LL COUNT 4.45 4.20-5.80 - Million/ uL ?HEMOGLOBIN 14.4 1 3.2-17.1 - g/dL ?HEMATOCRIT 41.1 3 8.5-50.0 - % ?MCV 92.4 80.0-100 .0 - fL ?MCH 32.4 27.0-33. 0 - pg ?MCHC 35.0 32.0-36 .0 - g/dL ?RDW 12.7 11.0-15. 0 - % ?PLATELET COUNT 143 140-400 - Thousand/uL ?NEUTROPHILS 58.2 - % ?ABSOLUTE NEUTROPHILS 3376 9712-6369 - cells/uL ?LYMPHOCYTES 33.5 - % ?ABSOLUTE LYMPHOCYTES 6691 328-6170 - cells/uL ?MONOCYTES 7.7 - % ?ABSOLUTE MONOCYTES 447 200-950 - cells/uL ?EOSINOPHILS 0.3 - % ?ABSOLUTE EOSINOPHILS 17 15-500 - cells/uL ?BASOPHILS 0.3 - % ?ABSOLUTE BASOPHILS 17 0-200 - cells/uL ?MPV 12.7 H 7.5-12.5 - fL ?Lab:COMPREHENSIVE META BOLIC PANEL ([id number]) (Order Date - 08/06/2023) (Collection Date & Time - 08/13/2023 03:22 PM) ? Value Reference Range ?GLUCOSE 78 65-9 9 - mg/dL ?UREA NITROGE N (BUN) 23 7-25 - mg/dL ?CREATININE 0.70 0 .60-1.26 - mg/dL ?BUN/CREATINI NE RATIO SEE NOTE: 6-22 - (calc) ?SODIUM 137 135-1 46 - mmol/L ?POTASSIUM 4.2 3. 5-5.3 - mmol/L ?CHLORIDE 102 98- 110 - mmol/L ?CARBON DIOXIDE 25 20-32 - mmol/L ?CALCIUM 9.6 8.6- 10.3 - mg/dL ?PROTEIN, TOTAL 7.6 6.1-8.1 - g/dL ?ALBUMIN 5.0 3.6- 5.1 - g/dL ?GLOBULIN 2.6 1.9 -3.7 - g/dL (calc) ?ALBUMIN/GLOB ULIN RATIO 1.9 1.0-2.5 - (calc) ?BILIRUBIN, TOTAL 0.6 0.2-1.2 - mg/dL ?ALKALINE PHOSPHATASE 33 L 36-130 - U/L ?AST 19 10-40 - U/L ?ALT 18 9-46 - U /L ?EGFR 120 > OR = 60 - mL/min/1.73m2 ?Lab:THYROID PANEL WITH TSH ([id number]) (Order Date - 08/06/2023) (Collection Date & Time - 08/13/2023 03:22 PM) ? Value Reference Range ?T3 UPTAKE 30 22 -35 - % ?T4 (THYROXIN E), TOTAL 5.9 4.9-10.5 - mcg/dL ?FREE T4 INDEX (T7) 1.8 1.4-3.8 - ?TSH 2.78 0.40-4.5 0 - mIU/L ?Lab:THYROID PEROXIDASE AND THYROGLOBULIN ANTIBODIES ([id number]) (Order Date - 08/06/2023) (Collection Date & Time - 08/13/2023 03:22 PM) ? Value Reference Range ?THYROGLOBULI N ANTIBODIES <1 < or = 1 - IU/mL ?THYROID MAMTA XIDASE ANTIBODIES 1 <9 - IU/mL ?Lab:URIC ACID (905) (O rder Date - 08/06/2023) (Collection Date & Time - 08/13/2023 03:22 PM) ? Value Reference Range ?URIC ACID 4.4 4. 0-8.0 - mg/dL ?Lab:URINALYSIS, COMPLE TE W/REFLEX TO CULTURE ([id number]) (Order Date - 08/06/2023) (Collection Date & Time - 08/13/2023 03:22 PM) ? Value Reference Range ?COLOR YELLOW YELLOW - ?APPEARANCE CLEAR C LEAR - ?BILIRUBIN NEGATIVE NE GATIVE - ?KETONES 1+ A NEGA TIVE - ?SPECIFIC GRAVITY 1.029 1.001-1.035 - ?OCCULT BLOOD NEGATIVE NEGATIVE - ?PH 7.5 5.0-8.0 - ?PROTEIN NEGATIVE NEGA TIVE - ?NITRITE NEGATIVE NEGA TIVE - ?LEUKOCYTE ESTERASE NEGATIVE NEGATIVE - ?WBC NONE SEEN < OR = 5 - /HPF ?RBC NONE SEEN < OR = 2 - /HPF ?SQUAMOUS EPITHELIAL CELLS NONE SEEN < OR = 5 - /HPF ?BACTERIA NONE SEEN NON E SEEN - /HPF ?HYALINE CAST NONE SEEN NONE SEEN - /LPF ?GLUCOSE NEGATIVE NEGA TIVE - * Examination: ?General Examination: ?General appearance: no acute distress, speaking full sentences, thoughts clear and appropriate. ? Head: normocephalic, atraumatic. ? Eyes: sclera anicteric. ? Oral cavity: with good dentition, tongue is midline. ? Lungs: non-labored breathing, no audible shortness of breath or wheezing. ? Neurologic: alert and oriented, cooperative with exam. ? Psych: with good judgement and insight, speech is clear and coherent, normal affect / mood. Assessment: * Assessment: 1.??Psoriasis - L40.9 (Prima ry)??2.??Primary hypertension - I10??3.??Mixed hyperlipidemia - E78.2??4.??Vitamin D deficiency - E55.9??5.??Encounter to discuss test results - Z71.2??6.??Gastroesophageal reflux disease without esophagitis - K21.9?? Plan: * Treatment: 2.??Primary hypertension?? Refill cloNIDine HCl Tablet, 0.1 MG, 1 tablet, Orally, Once a day, 30 days, 30, Refills 11.? Notes: Continue medication as directed Low-salt diet Weight management Regular exercise Yearly microalbumin? 3.??Mixed hyperlipidemia?? Continue CoQ-10 Capsule, 100 MG, 1 capsule, Orally, once a day;??Continue Rosuvastatin Calcium Tablet, 40 MG, TAKE 1 TABLET BY MOUTH EVERY DAY FOR 90 DAYS.? Notes: Continue current statin Low fat, low cholesterol diet Exercise Check lipids, LFTs? 4.??Vitamin D deficiency?? Continue Vitamin D-3 Tablet, 125 MCG (5000 UT), Take one tablet by mouth once daily., Oral, Notes to Pharmacist: Vitamin D3 125 mcg (5,000 unit) tablet.? Notes: Increase Vit D rich foods Check levels periodically Supplement as indicated? 5.??Encounter to discuss ashish t results?? Notes: All labs were reviewed and the results were explained to the patient in detail. Total time with patient >20 minutes which includes education and coordination of care.? 6.??Gastroesophageal reflux disease without esophagitis?? Refill Famotidine Tablet, 40 MG, 1 tablet at bedtime, Orally, Once a day, 90 days, 90 Tablet, Refills 3.? Notes: Well controlled on current med regimen Continue to limit caffeine, high fat, spicy foods Limit ibuprofen/NSAIDs? * Procedure Codes:??[address] [facility] Established patient visit, 20-29 minutes, Modifiers: GT * Preventive Medicine:?Last CPE- August 2021- DUE Colonoscopy- nvr due Endo Nvr Covid Vac- no Flu shot - no 02/17/22: Tcol 202; HDL 49; LDL 123; trigs 180; APO B 112; insulin 7.1; A1c 5.0 09/21/2022: Tcol 256; HDL 54; LDL 174; trigs 138; APO B 141. * Follow Up:??-- (Reason: unsu re if able to join membership program) * Billing Information: * Visit Code:?? * Procedure C[facility], 20-29 minutes. Modifiers: GT * Sign off status: Completed true * Provider:??Rylee Alas DNP Date:??01/2024 History and Physical Notes * HPI (History of Present Illness) Category Sub-Category Detail Notes Category Not es Patient Care Team Therapist- Dr Cat Gore [place] Visit info Virtual Care Communication method: both audio and video Patient's location during visit: home Provider's location during visit: office Verbal Consent Obtained: We know that your privacy is very important, and we want you to know that we take all steps to make sure your privacy is protected, including all confidentiality protections under the law. [facility]'s virtual care platforms are HIPAA compliant and meet other (federal and state) privacy and security laws. Even though your communications with [facility] are private and secure, there is always some risk with any information that is transmitted through the internet. Ramiro presents via video today to discuss how he is tolerating the Clonidine and for Lab Review. He states that he feels so much better on the Clonidine, he states that he has not vomited since his last visit at the office. Requesting refill on psoriasis ointment Examination Category Sub-Category Detail Notes Category Not es General Examination General appearance: no acute distress, speaking full sentences, thoughts clear and appropriate. Head: normocephalic, atraumatic. Eyes: sclera anicteric. Oral cavity: with good dentition, tongue is midline. Lungs: non-labored breathing, no audible shortness of breath or wheezing. Neurologic: alert and oriented, cooperative with exam. Psych: with good judgement and insight, speech is clear and coherent, normal affect / mood.
== END 2024-06-12 10:07 | disposition home or self-care (01) ==
PROVIDERS: PCP Physician Assistant Medical; Visit Provider Internal Medicine Pulmonary Disease
DX: J45.909 Unspecified asthma, uncomplicated (principal)
CPT/HCPCS: 94060; 94727; 94729; 99204

== ENCOUNTER → 2024-06-12 09:32 | Outpatient (BNVA) | payer BC, SELFPAY | PROVIDERS: PCP Physician Assistant Medical; Visit Provider Internal Medicine Pulmonary Disease ==

== ENCOUNTER 2024-06-12 10:13 | Outpatient (REF) | payer BC, SELFPAY ==
--- NOTE | 2024-06-12 10:29 | PFT_ITS ---
Flows: FEV1: 106 % of predicted at 4.03 L FVC: 115 % of predicted at 5.40 L FEV1/FVC: 75 % Bronchodilator response: Absent Volumes: Total lung capacity: 103 % of predicted at 6.68 L Residual volume: 83 % of predicted at 1.21 L Slow vital capacity: 109 % of predicted at 5.46 L Expiratory reserve volume: 37 % of predicted at the 0.50 L Diffusion capacity: Neuro Impression: No obstructive or restrictive ventilatory defect. No bronchodilator response. Decreased expiratory reserve volume suggests extrathoracic restriction likely secondary to abdominal obesity. MTDD
--- OUTSIDE RECORDS SUMMARY | 2024-06-12 10:56 | XMS_ITS | Encounter Summary ---
Author Organization [facility] Address [phone] Formerly [facility] [place] [address] Care Team Providers Care Surveillance Inspector Name Role Phone Liz Cazares MD Primary Care Provider Encounter Details Date Type Department Care Team (Late st Contact Info) Description 03/25/2022 Procedure Pass [facility], Ct Scan - [address] [address] Social History Tobacco Use Types Packs/Day Years [...] documented as of this encounter Care Teams Surveillance Inspector Relationship Specialty Start Date End Date Liz Cazares MD [address] [place] [phone] PCP - General Family Medicine 03/25/22 documented as of this encounter Additional Source Comments The information contained in this document represents components of the legal health record. It is not the complete legal health record.[facility]
--- OUTSIDE RECORDS SUMMARY | 2024-06-12 10:56 | XMS_ITS | Patient Health Record ---
Author Organization [facility] Address [address] [place] [phone] Care Team Providers Care Reed Man Name Role Phone CECEFELIX Primary Care Provider Cayetano Alasssie Unavailable [phone] ALLERGIES Allergen (clinical drug ingredient) Drug/Non Drug Allergy documented on EMR Reaction Allergy Type Onset Date Status Methotrexate stomach upset , Severity Observation:Mod erate , Drug Allergy Active lumateperone Caplyta panic attack/ sweating Drug Allergy Active RESULTS Component Value Reference Range Notes CARDIO IQ(R) APOLIPOPROTEIN B (77436) Reviewed date:08/22/2023 08:20:27 AM Interpretation: Performing Lab:Jacklyn, [facility], [address], JfjozakmaUK[address] Taz Desir PhD,[facility] Notes/Report: FASTING FASTING:YES FASTING: YES APOLIPOPROTEIN B 70 <90 mg/dL Risk: Optimal <90 mg/dL; Moderate 90-119 mg/dL; High >= 120 mg/dL; Cardiovascular event risk category cut points (optimal, moderate, high) are based on National Lipid Association recommendations- Velasquez TA et al. J of Clin Lipid. 2015; 9: 129-169 and Baron PS et al. Endocr Pract. 2017;23(Suppl 2):1-87. CARDIO IQ(R) APOLIPOPROTEIN A1 (24247) Reviewed date:08/22/2023 08:20:03 AM Interpretation: Performing Lab:Jacklyn, [employer], [address], WropqtnlqNO[address] Taz Desir PhD,[facility] Notes/Report: FASTING FASTING:YES FASTING: YES APOLIPOPROTEIN A1 142 >114 mg/dL Risk, Male: Optimal >= 115 mg/dL; High < 115 mg/dL; Risk, Female: Optimal >= 125 mg/dL; High <125 mg/dL; Cardiovascular event risk category cut points (optimal, high) are based on the AMORIS study Molly Cortes et al. J Line Operator Med. 2004;255:188-205. CARDIO IQ(R) HEMOGLOBIN A1c (38010) Reviewed date:08/22/2023 08:20:03 AM Interpretation: Performing Lab:Kamille, [employer] [address], [address], VpkdnhbnxIM[address] Taz Desir PhD,[facility] Notes/Report: FASTING FASTING:YES FASTING: YES HEMOGLOBIN A1c 5.2 <5.7 % For the purpose of screening for the presence of diabetes: <5.7% is consistent with the absence of diabetes; 5.7-6.4% is consistent with increased risk for diabetes (prediabetes); >= 6.5% is consistent with diabetes. This assay result is consistent with a decreased risk of diabetes. Currently, no consensus exists regarding use of hemoglobin A1c for diagnosis of diabetes in children. According to [place] Diabetes Association (ADA) guidelines, hemoglobin A1c <7.0% represents optimal control in non- diabetic patients. Different metrics may apply to specific patient populations. Standards of Medical Care in Diabetes (ADA). This test was performed on the Emerita kristin c503 platform. Effective 06/25/2023, a change in test platforms from the Alexander Extractor And Wringer Operator to the Emerita kristin c503 may have shifted HbA1c results compared to historical results. Based on laboratory validation testing conducted at [facility], the Emerita platform relative to the Alexander platform had an average increase in HbA1c value of <=0.3%. This difference is within accepted variability established by the National Glycohemoglobin Standardization Program. Note that not all individuals will have had a shift in their results and direct comparisons between historical and current results for testing conducted on different platforms is not recommended. CARDIO IQ(R) HOMOCYSTEINE (9 1733) Reviewed date:08/22/2023 08:20:03 AM Interpretation: Performing Lab:Jacklyn [employer], [address], ArqxeejbtKS[address] Taz Desir PhD,[facility] Notes/Report: FASTING FASTING:YES FASTING: YES HOMOCYSTEINE 10.0 <11.4 umol/L Homocysteine is increased by functional deficiency of folate or vitamin B12. Testing for methylmalonic acid differentiates between these deficiencies. Other causes of increased homocysteine include renal failure, folate antagonists such as methotrexate and phenytoin, and exposure to nitrous oxide. Georgina J, et al. Aliya Line Operator Med. 1999;131(5):331-9. Homocysteine is increased by functional deficiency of folate or vitamin B12. Testing for methylmalonic acid differentiates between these deficiencies. Other causes of increased homocysteine include renal failure, folate antagonists such as methotrexate and phenytoin, and exposure to nitrous oxide. Selqing J, et al., Aliya Line Operator Med. 1999;131(5):331-9. CARDIO IQ(R) HS CRP (12020) Reviewed date:08/22/2023 08:20:03 AM Interpretation: Performing Lab:[place] [facility] [address], [address], DfrplkndjJE[address] Taz Desir PhD,[facility] Notes/Report: FASTING FASTING:YES FASTING: YES HS CRP <0.30 <1.0 mg/L The AHA/CDC Guidelines recommend hs-CRP ranges for identifying Relative Cardiovascular Risk in patients ages >17 years: <1.0 mg/L Lower Relative Cardiovascular Risk; 1.0-3.0 mg/L Average Relative Cardiovascular Risk; 3.1-10.0 mg/L Higher Relative Cardiovascular Risk. For patients with higher cardiovascular risk, consider retesting in 1-2 weeks to exclude a benign transient elevation secondary to infection or inflammation from the baseline CRP value. Persistent elevations of >10.0 mg/L upon retesting may be associated with infection and inflammation. The AHA/CDC recommendations are based on Patricio TA et al. Circulation. 2003;107:499-511. For ages >17 Years: hs-CRP mg/L Risk According to AHA/CDC Guidelines <1.0 Lower relative cardiovascular risk. 1.0-3.0 Average relative cardiovascular risk. 3.1-10.0 Higher relative cardiovascular risk. Consider retesting in 1 to 2 weeks to exclude a benign transient elevation in the baseline CRP value secondary to infection or inflammation. >10.0 Persistent elevation, upon retesting, may be associated with infection and inflammation. CARDIO IQ(R) INSULIN (40502) Reviewed date:08/22/2023 08:20:03 AM Interpretation: Performing Lab:Z4, [employer] [facility] [facility], [address], RjpcpouwhSY[address] Taz Desir PhD,[facility] Notes/Report: FASTING FASTING:YES FASTING: YES INSULIN 6.4 <18.5 uIU/mL CARDIO IQ(R) LIPID PANEL (91 716) Reviewed date:08/22/2023 08:20:03 AM Interpretation: Performing Lab:Z4M, [employer], [address], EbmlgsicmJU[address] Taz Desir PhD,[facility] Notes/Report: FASTING FASTING:YES FASTING: YES CHOLESTEROL, TOTAL 143 <200 mg/dL HDL CHOLESTEROL 52 >39 mg/dL TRIGLYCERIDES 86 <150 mg/dL LDL-CHOLESTEROL 74 <100 mg/dL (calc) Desirable range <100 mg/dL for primary prevention; <70 mg/dL for patients with CHD or diabetic patients with >= 2 CHD risk factors. LDL-C is now calculated using the Isrrael-Lau calculation, which is a validated novel method providing better accuracy than the Friedewald equation in the estimation of LDL-C. Isrrael SS et al. JANIS. 2013;310(19): 5813-3707 (http://education.Shopitize.com/faq/NTE230) LDL-C is now calculated using the Isrrael-Lau calculation, which is a validated novel method providing better accuracy than the Friedewald equation in the estimation of LDL-C. Isrrael SS et al. JANIS. 2013;310(19): 2040-2022 (http://education.Shopitize.com/faq/ZDT020) CHOL/HDLC RATIO 2.8 <5.0 calc NON HDL CHOLESTEROL 91 <130 mg/dL (calc) For patients with diabetes plus 1 major ASCVD risk factor, treating to a non-HDL-C goal of <100 mg/dL (LDL-C of <70 mg/dL) is considered a therapeutic option. For patients with diabetes plus 1 major ASCVD risk factor, treating to a non-HDL-C goal of <100 mg/dL (LDL-C of <70 mg/dL) is considered a therapeutic option. CARDIO IQ(R) LIPOPROTEIN (a) (89922) Reviewed date:08/22/2023 08:20:03 AM Interpretation: Performing Lab:Jacklyn, [facility].-[facility].[address] [place] [address], [address], [id number] Taz Desir PhD,[facility] Notes/Report: FASTING FASTING:YES FASTING: YES LIPOPROTEIN (a) 63 <75 nmol/L Risk: Optimal <75 nmol/L; Moderate 75-125 nmol/L; High >125 nmol/L. Cardiovascular event risk category cut points (optimal, moderate, high) are based on Veronica Petit [facility] 2017;69:692-711. CARDIO IQ(R) VITAMIN D, 25 H YDROXY (27675) Reviewed date:08/22/2023 08:26:05 AM Interpretation: Performing Lab:[facility]co [employer] [facility] , MddolhoyaQS[address] Jefe Omalley M.D.,PhD Notes/Report: FASTING FASTING:YES FASTING: YES VITAMIN D, 25-OH, TOTAL 27 30-100 ng/mL Vitamin D, 25-Hydroxy reports concentrations of two common forms, 25-OHD2 and 25-OHD3. 25-OHD3 indicates both endogenous production and supplementation. 25-OHD2 is an indicator of exogenous sources such as diet or supplementation. Therapy is based on measurement of Total 25-OHD, with levels <20 ng/mL indicative of Vitamin D deficiency, while levels between 20 ng/mL and 30 ng/mL suggest insufficiency. Optimal levels are > or = 30 ng/mL. For additional information, please refer to http://education.Apsalar.[employer] Entertainment/faq/WET656 (This link is being provided for informational/ educational purposes only.) VITAMIN D, 25-OH, D3 27 This test was developed and its analytical performance characteristics have been determined by [facility] [place], [place]. It has not been cleared or approved by the U.S. Food and Drug Administration. This assay has been validated pursuant to the CLIA regulations and is used for clinical purposes. VITAMIN D, 25-OH, D2 <4 This test was developed and its analytical performance characteristics have been determined by [facility] [place], [place]. It has not been cleared or approved by the U.S. Food and Drug Administration. This assay has been validated pursuant to the CLIA regulations and is used for clinical purposes. CBC (INCLUDES DIFF/PLT) (639 9) Reviewed date:08/14/2023 08:31:01 AM Interpretation: Performing Lab:NL2, [facility] Donna Britton Notes/Report: FASTING FASTING:YES FASTING: YES WHITE BLOOD CELL COUNT 5.8 3.8-10.8 Thousand/ uL RED BLOOD CELL COUNT 4.45 4.20-5.80 Million/uL HEMOGLOBIN 14.4 13.2-17.1 g/dL HEMATOCRIT 41.1 38.5-50.0 % MCV 92.4 80.0-100.0 fL MCH 32.4 27.0-33.0 pg MCHC 35.0 32.0-36.0 g/dL RDW 12.7 11.0-15.0 % PLATELET COUNT 143 140-400 Thousand/uL MPV 12.7 7.5-12.5 fL ABSOLUTE NEUTROPHILS [phone] cells/uL ABSOLUTE LYMPHOCYTES 8842 387-6649 cells/uL ABSOLUTE MONOCYTES 447 200-950 cells/uL ABSOLUTE EOSINOPHILS 17 15-500 cells/uL ABSOLUTE BASOPHILS 17 0-200 cells/uL NEUTROPHILS 58.2 LYMPHOCYTES 33.5 MONOCYTES 7.7 EOSINOPHILS 0.3 BASOPHILS 0.3 COMPREHENSIVE METABOLIC PANE L (35635) Reviewed date:08/14/2023 12:21:37 PM Interpretation: Performing Lab:2, [facility] Donna Britton Notes/Report: FASTING FASTING:YES FASTING: YES GLUCOSE 78 65-99 mg/dL Fasting reference interval UREA NITROGEN (BUN) 23 7-25 mg/dL CREATININE 0.70 0.60-1.26 mg/dL EGFR 120 > OR = 60 mL/min/1.73m2 BUN/CREATININE RATIO SEE NOTE: 6-22 (calc) Not Reported: BUN and Creatinine are within reference range. SODIUM 137 135-146 mmol/L POTASSIUM 4.2 3.5-5.3 mmol/L CHLORIDE 102 98-110 mmol/L CARBON DIOXIDE 25 20-32 mmol/L CALCIUM 9.6 8.6-10.3 mg/dL PROTEIN, TOTAL 7.6 6.1-8.1 g/dL ALBUMIN 5.0 3.6-5.1 g/dL GLOBULIN 2.6 1.9-3.7 g/dL (calc) ALBUMIN/GLOBULIN RATIO 1.9 1.0-2.5 (calc) BILIRUBIN, TOTAL 0.6 0.2-1.2 mg/dL ALKALINE PHOSPHATASE 33 36-130 U/L AST 19 10-40 U/L ALT 18 9-46 U/L THYROID PANEL WITH TSH (7444 ) Reviewed date:08/14/2023 11:54:19 AM Interpretation: Performing Lab:[employer], [facility] Donna Britton Notes/Report: FASTING FASTING:YES FASTING: YES T3 UPTAKE 30 22-35 % T4 (THYROXINE), TOTAL 5.9 4.9-10.5 mcg/dL FREE T4 INDEX (T7) 1.8 1.4-3.8 TSH 2.78 0.40-4.50 mIU/L THYROID PEROXIDASE AND THYRO GLOBULIN ANTIBODIES (7260) Reviewed date:08/14/2023 03:01:46 PM Interpretation: Performing Lab:[employer] [facility] Donna Britton Notes/Report: FASTING FASTING:YES FASTING: YES THYROGLOBULIN ANTIBODIES <1 < or = 1 IU/mL THYROID PEROXIDASE ANTIBODIES 1 <9 IU/mL URIC ACID (905) Reviewed date:08/14/2023 11:54:19 AM Interpretation: Performing Lab:[facility], [facility] Donna Britton Notes/Report: FASTING FASTING:YES FASTING: YES URIC ACID 4.4 4.0-8.0 mg/dL Therapeutic ta rget for gout patients: <6.0 mg/dL URINALYSIS, COMPLETE W/REFLE X TO CULTURE (1052) Reviewed date:08/14/2023 08:30:49 AM Interpretation: Performing Lab:NL2, [facility] [address] [facility] Donna Britton Notes/Report: FASTING FASTING:YES FASTING: YES FASTING FASTING:YES FASTING: YES COLOR YELLOW YELLOW APPEARANCE CLEAR CLEAR SPECIFIC GRAVITY 1.029 1.001-1.035 PH 7.5 5.0-8.0 GLUCOSE NEGATIVE NEGATIVE BILIRUBIN NEGATIVE NEGATIVE KETONES 1+ NEGATIVE OCCULT BLOOD NEGATIVE NEGATIVE PROTEIN NEGATIVE NEGATIVE NITRITE NEGATIVE NEGATIVE LEUKOCYTE ESTERASE NEGATIVE NEGATIVE WBC NONE SEEN < OR = 5 /HPF RBC NONE SEEN < OR = 2 /HPF SQUAMOUS EPITHELIAL CELLS NONE SEEN < OR = 5 /HPF BACTERIA NONE SEEN NONE SEEN /HPF HYALINE CAST NONE SEEN NONE SEEN /LPF NOTE This urine was analyzed for the presence of WBC, RBC, bacteria, casts, and other formed elements. Only those elements seen were reported. REFLEXIVE URINE CULTURE NO C ULTURE INDICATED REASON FOR REFERRAL Reason Sleep study to [facility] please. History of KULDIP with needing CPAP- has been lost to follow-up Diagnosis 1 Obstructive sleep ap jesu (G47.33) [facility] Referring Provider First Name Rylee Referring Provider Last Name Bishop Referring Provider Speciality Nurse Miguel doverioner Referred Organization [facility] Referred Address [address] [place] [phone], Referred Provider Specialty Sleep Medici ne General Notes PAUL WISEMAN 0 08/15/2023 03:03:40 PM >appt request, neuro diagnostic form, demographics, insurance info, referral and office note faxed to [facility] [phone] Referral Priority Routine MEDICATIONS Medication SIG (Take, Route, Frequency, Duration) Notes Start Date End Date Status Vitamin D-3 125 MCG (5000 UT) Take one tablet by mouth once daily. Oral Vitamin D3 125 mcg (5,000 unit) tablet 02/22/2022 Active CoQ-10 100 MG 1 capsule Orally once a day 09/26/2022 Active Benzonatate 100 MG 3 x a day Oral benzonatate 1 00 mg capsule 03/27/2022 Active ProAir HFA 108 (90 Base) MCG/ACT Inhalation albuterol sulfate HFA 90 mcg/actuation aerosol inhaler *Reorder from [employer] for eRx and Interaction Alerts* 02/01/2022 Active cloNIDine HCl 0.1 MG 1 tablet Orally Once a day for 30 days 08/13/2023 Active Ashwagandha 500 MG as directed Orally Active Famotidine 40 MG 1 tablet at bedtime Orally Once a day for 90 days 08/13/2023 Active Fluticasone Propionate 50 MCG/ACT 1 spray in each nostril Nasally Once a day Active Rosuvastatin Calcium 40 MG TAKE 1 TABLET BY MOUTH EVERY DAY for 90 Active Propranolol HCl 10 MG TAKE 1 TABLET BY MOUTH TWICE A DAY NEEDED for 90 Active Divalproex Sodium 500 MG TAKE 1 TAB BY MOUTH IN THE MORNING AND 2 TABS DAILY AT BEDTIME 60 for 60 Active SOCIAL HISTORY Tobacco Use: Social History [...] W/U Status Risk SNOMED Code Notes Problem Mixed hyperlipidemia (E78.2) Active confirmed 499143079 Problem Bipolar II disorder (F31.81) Active confirmed 42724674 Problem Essential (primary) hypertension (I10) Active confirmed 44881699 Problem Vitamin D deficiency (E55.9) Active confirmed 07608689 Problem Primary hypertension (I10) Active confirmed 37784400 Problem Gastroesophageal reflux disease without esophagitis (K21.9) Active confirmed 507012739 Problem Psoriasis (L40.9) Active confirmed 9014 002 Problem Obstructive sleep apnea (G47.33) Active confirmed 63574963 Problem Psoriatic arthritis (L40.50) Active confirmed 504208295 VITAL SIGNS Heart Rate 69 /min 08/13/2023 Height-cm 170.18 cm 08/30/2023 Oximetry 98 % 08/13/2023 Blood pressure diastolic 92 mm Hg 08/13/2023 Weight-kg 104.14 kg 08/13/2023 Height 67 in 08/30/2023 Blood pressure systolic 142 mm Hg 08/13/2023 Weight 229.6 lbs 08/13/2023 BMI 35.96 kg/m2 08/13/2023 PROCEDURES Procedure Date Ordered Date Performed Result Body Sit e POLYSOMNOGRAPHY W/CPAP 08/13/2023 N/A Encounters Encounter Location Date Provider Diagnosis [address] [id number] 11/28/2023 Rylee Alas [address] [id number] 08/13/2023 Rylee Alas Obstructive sleep ap jesu G47.33 ; Gastroesophageal reflux disease without esophagitis K21.9 ; Essential (primary) hypertension I10 and Encounter for screening for depression Z13.[address] [id number] 08/30/2023 Rylee Alas Psoriasis L40.9 ; Primary hypertension I10 ; Mixed hyperlipidemia E78.2 ; Vitamin D deficiency E55.9 ; Encounter to discuss test results Z71.2 and Gastroesophageal reflux disease without esophagitis K21.[address] [id number] 08/05/2023 Rylee Alas Mixed hyperlipidemia E78.2 ; Psoriatic arthritis L40.50 ; Obstructive sleep apnea G47.33 ; Essential (primary) hypertension I10 and Other fatigue R53.83 ASSESSMENTS Encounter Date Diagnosis Assessment Notes Treatment Notes Treatment Clinical Notes Section Notes 08/05/2023 Mixed hyperlipidemia (ICD-10 - E78.2) 08/05/2023 Psoriatic arthritis (ICD-10 - L40.50) 08/13/2023 Gastroesophageal reflux disease without esophagitis (ICD-10 [...] them done before he leaves today 08/13/2023 Obstructive sleep apnea (ICD-10 - G47.33) Compliant with CPAP/BiPap mask Continue plan of care 08/30/2023 Primary hypertension (ICD-10 - I10) Continue medication as directed Low-salt diet Weight management Regular exercise Yearly microalbumin 08/30/2023 Psoriasis (ICD-10 - L40.9) 08/05/2023 Obstructive sleep apnea (ICD-10 - G47.33) 08/30/2023 Mixed hyperlipidemia (ICD-10 - E78.2) Continue current statin Low fat, low cholesterol diet Exercise Check lipids, LFTs 08/13/2023 Essential (primary) hypertension (ICD-10 - I10) [...] Will add medication- close FU 4 weeks 08/05/2023 Essential (primary) hypertension (ICD-10 - I10) 08/30/2023 Vitamin D deficiency (ICD-10 - E55.9) Increase Vit D rich foods Check levels periodically Supplement as indicated 08/30/2023 Encounter to discuss test results (ICD-10 - Z71.2) All labs were reviewed and the results were explained to the patient in detail. Total time with patient >20 minutes which includes education and coordination of care. 08/05/2023 Other fatigue (ICD-10 - R53.83) 08/30/2023 Gastroesophageal reflux disease without esophagitis (ICD-10 - K21.9) Well controlled on current med regimen Continue to limit caffeine, high fat, spicy foods Limit ibuprofen/NSAIDs PLAN OF TREATMENT Pending Test Test Name Order Date POLYSOMNOGRAPHY W/CPAP 08/13/2023 POLYSOMNOGRAPHY W/CPAP 08/31/2022 Future Test Test Name Order Date HELICOBACTER PYLORI, UREA BREATH TEST ( 4084) 08/13/2023 Insurance Providers Payer Name Payer Address Payer Phone Subscriber Number Group Number Insured Name Patient Relationship to Insured Coverage Start Date Coverage End Date [address] [place], [place] [phone] [id number] ÁLVARO LAGUNA Self - patient is the insured MEDICAL (GENERAL) HISTORY Medical History History ICD Code asthma - mild intermittent anxiety autoimmune disorder depression KULDIP with CPAP hyperlipidemia psoriatic arthritis Surgical History Surgery Date(Month/Year) vasectomy 26 broken bones in past (Sports)
--- OUTSIDE RECORDS SUMMARY | 2024-06-12 10:56 | XMS_ITS | Clinical Summary ---
Author Organization [facility] Address [phone] [facility] [employer] [facility] [employer] [place] [address] Care Team Providers Care Quality Control Lab Technician Name Role Phone Liz Cazares MD Primary [...] Medical Devices Not on file Care Teams Quality Control Lab Technician Relationship Specialty Start Date End Date Liz Cazares MD [address] [place] [phone] PCP - General Family Medicine 03/25/22 Additional Source Comments The information contained in this document represents components of the legal health record. It is not the complete legal health record.[facility]
[2024-06-12 10:59] LABS: MANUAL DIFF FLAG NO
[2024-06-12 11:37] LABS: Basophils Absolute Auto 0.1 X10*3/uL (0.0-0.2); Eosinophils Absolute Auto 0.3 X10*3/uL (0.0-0.4); Eosinophils Percent Auto 5.1 % (0-4); Hemoglobin 15.6 g/dl (14.0-18.0); Imm Gran Abs Auto 0.02 X10*3/uL (0.00-0.03); Imm Gran Pct Auto 0.4 % (0.0-0.4); Lymphocytes Absolute Auto 1.3 X10*3/uL (1.2-4.9); Lymphocytes Percent Auto 26.6 % (20-40); Mean Corpuscular HGB Conc 35.5 g/dl (31.0-36.0); Mean Corpuscular Volume 90.3 fL (80.0-98.0); Mean Platelet Volume 11.7 fL (9.4-12.4); Monocytes Absolute Auto 0.4 X10*3/uL (0.1-1.2); Monocytes Percent Auto 8.7 % (2-11); Neutrophils Absolute Auto 2.9 x10*3/uL (2.0-8.3); Neutrophils Percent Auto 58.2 % (45-73); Platelet Count 180 X10*3/uL (160-400); Red Blood Count 4.87 X10*6/uL (4.60-5.80); Red Cell Distribution Width 11.7 % (11.0-16.0); White Blood Count 4.9 X10*3/uL (4.8-10.8)
[2024-06-16 03:03] LABS: Class Alternaria alternata 0; Class Aspergillus fumigatus 0; Class Bermuda Grass 0; Class Birch 2; Class Cat Dander 2; Class Cladosporium herbarum 0; Class Cockroach 0; Class Common Ragweed 0/1; Class Cottonwood 0/1; Class Derm. pterony 3; Class Dermatophagoides farinae 3; Class Dog Dander 0/1; Class Elm 0; Class Maple Box Elder 0; Class Mountain Cedar 0; Class Mouse Urine Protein 0; Class Mugwort 0; Class Oak 2; Class Penicillium crysogenum 0; Class Rough Pigweed 0; Class Sheep Sorrel 0; Class Sycamore 0; Class Timothy Grass 0/1; Class Walnut Tree 0; Class White Ash 0/1; Class White Mulberry 0; D002 - IgE D farinae 9.48 kU/L; E001 - IgE Cat Dander 0.81 kU/L; E005 - IgE Dog Dander 0.33 kU/L; E072-IgE Mouse Urine <0.10 kU/L; G002 IgE Bermuda Grass <0.10 kU/L; G006 - IgE Timothy Grass 0.13 kU/L; I006-IgE Cockroach, German <0.10 kU/L; Immunoglobulin E 121 kU/L (<OR=114); M001 IgE Penicillium chrysogen <0.10 kU/L; M002 - IgE Cladosporium herbar <0.10 kU/L; M003 - IgE Aspergillus fumigat <0.10 kU/L; M006 - IgE Alternaria alternat <0.10 kU/L; T001 IgE Maple/Box Elder <0.10 kU/L; T003 IgE Common Silver Birch 0.83 kU/L; T006 - IgE Cedar, Mountain <0.10 kU/L; T007 - IgE Oak, White 1.62 kU/L; T008 IgE Elm, American <0.10 kU/L; T010 - IgE Walnut <0.10 kU/L; T011 - IgE Maple Leaf Sycamore <0.10 kU/L; T014 - IgE Cottonwood 0.19 kU/L; T015 - IgE Ash, White 0.15 kU/L; T070 - IgE White Mulberry <0.10 kU/L; W001 - IgE Ragweed, Short 0.23 kU/L; W006 - IgE Mugwort <0.10 kU/L; W014 IgE Pigweed, Common <0.10 kU/L; W018 IgE Sheep Sorrel <0.10 kU/L
[2024-06-18 10:27] VITALS: PULSE 82; O2SAT 96
== END 2024-06-12 10:14 | disposition home or self-care (01) ==
LOC: HO.RESP 10:13
PROVIDERS: Visit Provider Internal Medicine Pulmonary Disease
DX: J45.909 Unspecified asthma, uncomplicated (principal); Z91.09 Other allergy status, other than to drugs and biological substances
CPT/HCPCS: 36415; 82785; 85025; 86003; 94010; 94640; 94727; 94729

== ENCOUNTER 2024-07-03 15:30 | Outpatient (AMB) | payer BC, SELFPAY ==
[2024-07-03 15:34] VITALS: BP 109/64; PULSE 88; O2SAT 98; BMI 38.8
--- NOTE | 2024-07-03 15:34 | MHC.OFFVIS ---
Vital Signs 07/03/24 15:34 Height 5 ft 7 in Weight 248 lb BMI 38.8 BP 109/64 Blood Pressure Location Lt brachial Position Sitting Pulse 88 Pulse Source Doppler Pulse Oximetry (%) 98 Oxygen Delivery Method Room Air Intake Visit Reasons: Asthma Allergies cat dander Allergy (Mild, Verified 06/12/24 09:45) Unknown HPI HPI Asthma: Details: 38-year-old gentleman, vaping, but trying to quit, with underlying history of exercise induced asthma since teenage years, KULDIP on CPAP referred for evaluation pulmonary complaints. Patient states that over the last 2-3 months he has been having persistent bronchitic symptoms with cough, sputum production, and intermittent wheezing, only somewhat relieved by his albuterol MDI. 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 Patient does have family history of asthma in his mother. He currently has rabbit as a pet. Patient does have significant environmental allergies that get worse around spring time. After the last office visit patient has completed his pulmonary function test that shows underlying asthma. His symptoms also better controlled after he was started on Breo. He rarely uses his albuterol MDI. He did finish his immunologic workup that shows underlying allergic component to his symptoms. He denies acute exacerbations. [facility] Surgical History Hx of vasectomy Family History Paternal Grandfather Colon cancer Social History (Updated 06/12/24 @ 09:47 by Anna Barnett [facility]) Patient Tobacco Use Status: Never used Tobacco e-Cigarette/Vaping Use: Currently Using Review of Systems Const Denies daytime sleepiness, Denies excessive sweating, Denies fatigue, Denies fever(s), Denies lethargy, Denies malaise, Denies night sweats, Denies snoring and Denies weight loss Eyes Denies blurry vision and Denies itchy eyes ENT Denies nasal congestion, Denies post nasal drip, Denies sinus pain, Denies sinus pressure and Denies other ( Thrush) Card Denies chest pain, Denies pedal edema, Denies dyspnea, Denies orthopnea and Denies paroxysmal nocturnal dyspnea Resp Denies cough, Denies hemoptysis, Denies excessive phlegm production, Denies dyspnea, Denies snoring and Denies wheezing GI Denies abdominal pain and Denies heartburn Musc Denies myalgias, Denies arthralgias and Denies joint swelling Skin/Breast Denies rash Neuro Denies memory loss and Denies seizure-like activity Psych Denies abnormal sleep pattern, Denies anxiety and Denies memory loss Endo Denies excessive sweating, Denies fatigue and Denies heat intolerance Naveen/Lymph Denies easy bruising Aller/Immun Denies itchy eyes, Denies seasonal rhinorrhea and Denies wheezing Physical Exam Vital Signs: Last Vital Signs Pulse 88 07/03/24 15:34 BP 109/64 07/03/24 15:34 Pulse Ox 98 07/03/24 15:34 Oxygen Delivery Method Room Air 07/03/24 15:34 BMI result Body Mass Index 38.8 Const General: no acute distress and alert Nutritional Appearance: not obese Orientation/consciousness: Other orientation findings ( oriented) HEENT Head: Yes atraumatic Eyes General: appearance normal, both eyes and all related structures Sclerae: sclerae normal EOM: EOMs intact bilaterally Neck Neck: Yes supple Lymphatic: no lymphadenopathy noted Resp Effort & Inspection: normal respiratory effort and no use of accessory muscles Auscultation: clear to auscultation bilaterally Cardio Rate: regular rate Rhythm: regular rhythm Heart sounds: no gallops, no murmurs and no rubs Skin General skin exam: other ( warm) Extrem General: No clubbing, No cyanosis and No edema Assessment & Plan Assessment & Plan (1) Asthma: Code(s): J45.909 - Unspecified asthma, uncomplicated Category: Medical Plan: Results of pulmonary function test reviewed, underlying asthma, now reasonably controlled on Breo and albuterol MDI. Continue current regimen. (2) Environmental allergies: Code(s): Z91.09 - Other allergy status, other than to drugs and biological substances Category: Medical Plan: Results of immunologic testing reviewed, underlying significant allergic component to current asthma symptoms. At this time reasonably controlled on Breo, if fails to be controlled, will consider Xolair. Coding Level of Care Code Est Pt Level 4 (27630) Diagnoses Asthma J45.909 Environmental allergies Z91.09
--- OUTSIDE RECORDS SUMMARY | 2024-07-03 16:37 | XMS_ITS ---
Author Organization [employer] [facility] Address [address] [place] [phone] Care Team Providers Care Instructor Programmable Controllers Name Role Phone CECE FELIX Primary Care Provider [phone] Rylee Alas Unavailable [phone] ALLERGIES Allergen (clinical drug ingredient) Drug/Non Drug [...] HFA 90 mcg/actuation aerosol inhaler *Reorder from [employer] for eRx and Interaction Alerts* 02/01/2022 Active [...] 002 Problem Primary hypertension (I10) Active confirmed 24133828 Problem Vitamin D deficiency (E55.9) Active confirmed 70826864 VITAL SIGNS Height 67 in 08/30/2023 Height-cm 170.18 cm 08/30/2023 Encounters Encounter Location Date Provider Diagnosis [address] [id number] 08/30/2023 Rylee Alas Psoriasis L40.9 ; Primary [...] Notes * JASE, RAMIRODOB:1985 (37 yo M)Acc No.[id number]:08/30/2023 Progress Note Patient:??RAMIRO LAGUNA Provider:??Rylee Alas DNP :1985?Age:37 Y?Sex:Ma le Date:08/30/2023 Phone: Address: [address], [facility] [id number] Pcp:FELIX ZHAO Subjective: * Chief Complaints: * ?F/U MEDS * HPI: ?Patient Care Team:? Therapist- Dr Cat Gore [place]. ?Visit info:? Virtual Care Communication method: both audio and video ?Patient's location during visit: home ?Provider's location during visit: office ?Verbal Consent Obtained: We know that your privacy is very important, and we want you to know that we take all steps to make sure your privacy is protected, including all confidentiality protections under the law. [facility]'s virtual care platforms are HIPAA compliant and meet other (federal and state) privacy and security laws. Even though your communications with [facility] are private and secure, there is always [...] HFA 90 mcg/actuation aerosol inhaler *Reorder from [facility] for eRx and Interaction Alerts*Vitamin D-3 125 [...] HFA 90 mcg/actuation aerosol inhaler *Reorder from [facility] for eRx and Interaction Alerts*Taking Vitamin D-3 [...] ?Past Orders: ?Lab:CARDIO IQ(R) APOLI POPROTEIN B (91694) (Order Date - 08/06/2023) (Collection Date & Time - 08/13/2023 03:22 PM) ? Value Reference Range ?APOLIPOPROTEIN B 70 <90 - mg/dL ?Lab:CARDIO IQ(R) APOLI POPROTEIN A1 (91430) (Order Date - 08/06/2023) (Collection Date & Time - 08/13/2023 03:22 PM) ? Value Reference Range ?APOLIPOPROTEIN A1 142 >114 - mg/dL ?Lab:CARDIO IQ(R) HEMOG LOBIN A1c (71744) (Order Date - 08/06/2023) (Collection Date & Time - 08/13/2023 03:22 PM) ? Value Reference Range ?HEMOGLOBIN A1c 5.2 <5.7 - % ?Lab:CARDIO IQ(R) HOMOC YSTEINE (50456) (Order Date - 08/06/2023) (Collection Date & Time - 08/13/2023 03:22 PM) ? Value Reference Range ?HOMOCYSTEINE 10.0 <11.4 - umol/L ?Lab:CARDIO IQ(R) HS CR P (46429) (Order Date - 08/06/2023) (Collection Date & Time - 08/13/2023 03:22 PM) ? Value Reference Range ?HS CRP <0.30 <1.0 - mg/L ?Lab:CARDIO IQ(R) INSUL IN (06128) (Order Date - 08/06/2023) (Collection Date & Time - 08/13/2023 03:22 PM) ? Value Reference Range ?INSULIN 6.4 <18. 5 - uIU/mL ?Lab:CARDIO IQ(R) LIPID PANEL (31196) (Order Date - 08/06/2023) (Collection Date & Time - 08/13/2023 03:22 PM) ? Value Reference Range ?TRIGLYCERIDES 86 <150 - mg/dL ?CHOLESTEROL, TOTAL 143 <200 - mg/dL ?HDL CHOLESTEROL 52 >39 - mg/dL ?LDL-CHOLESTEROL 74 <100 - mg/dL (calc) ?CHOL/HDLC RATIO 2.8 <5.0 - calc ?NON HDL CHOLESTEROL 91 <130 - mg/dL (calc) ?Lab:CARDIO IQ(R) LIPOP ROTEIN (a) (34622) (Order Date - 08/06/2023) (Collection Date & Time - 08/13/2023 03:22 PM) ? Value Reference Range ?LIPOPROTEIN (a) 63 <75 - nmol/L ?Lab:CARDIO IQ(R) VITAM IN D, 25 HYDROXY (58807) (Order Date - 08/06/2023) (Collection Date & [...] ?NEUTROPHILS 58.2 - % ?ABSOLUTE NEUTROPHILS 3376 2258-3408 - cells/uL ?LYMPHOCYTES 33.5 - % ?ABSOLUTE LYMPHOCYTES 8268 696-4875 - cells/uL ?MONOCYTES 7.7 - % ?ABSOLUTE MONOCYTES 447 200-950 - cells/uL ?EOSINOPHILS 0.3 - % ?ABSOLUTE EOSINOPHILS 17 15-500 - cells/uL ?BASOPHILS 0.3 - % ?ABSOLUTE BASOPHILS 17 0-200 - cells/uL ?MPV 12.7 H 7.5-12.5 - fL ?Lab:COMPREHENSIVE META BOLIC PANEL (90635) (Order Date - 08/06/2023) (Collection Date & [...] mg/dL ?Lab:URINALYSIS, COMPLE TE W/REFLEX TO CULTURE (4384) (Order Date - 08/06/2023) (Collection Date & [...] fat, spicy foods Limit ibuprofen/NSAIDs? * Procedure Codes:??63817 Tele [facility] Established patient visit, 20-29 minutes, Modifiers: [...] Information: * Visit Code:?? * Procedure Codes:?? [facility] visit, 20-29 minutes. Modifiers: GT * Sign off status: Completed true * Provider:??Rylee Alas DNP Date:??01/2024 History and Physical Notes * HPI (History of Present Illness) Category Sub-Category Detail Notes Category Not es Patient Care Team Therapist- Dr Cat Gore [place] Visit info Virtual Care Communication method: both audio and video Patient's location during visit: home Provider's location during visit: office Verbal Consent Obtained: We know that your privacy is very important, and we want you to know that we take all steps to make sure your privacy is protected, including all confidentiality protections under the law. [facility]'s virtual care platforms are HIPAA compliant and meet other (federal and state) privacy and security laws. Even though your communications with [facility] are private and secure, there is always [...]
--- OUTSIDE RECORDS SUMMARY | 2024-07-03 16:37 | XMS_ITS ---
Author Name [facility] Organization Unknown Care Team Organization Name Specialty Phone Email Start Date End [facility]
--- OUTSIDE RECORDS SUMMARY | 2024-07-03 16:37 | XMS_ITS ---
Author Organization [facility], [facility] Address [address], [place] [id number] Care Team Providers Care Pressurizer Name Role Phone FELIX ZHAO Primary Care Provider [phone] Rylee Alas [phone] REASON FOR VISIT CPE Encounters Encounter Location Date Provider Diagnosis [address] [id number] 11/28/2023 Rylee Alas PLAN OF TREATMENT No Information Progress Notes * JASEÁLVARO CHAVESDOB:1985 (38 yo M)Acc No.[id number]:11/28/2023 Progress Note Patient:??ÁLVARO LAGUNA Provider:??Rylee Alas DNP :1985?Age:38 Y?Sex:Ma le Date:11/28/2023 Phone: Address:[address], [place], [place] Pcp:FELIX ZHAO Subjective: * Chief Complaints: * ?1. CPE. * Medical History:?? Objective: Assessment: Plan: * Treatment: Care Plan: * Problems:?? * Billing Information: * Visit Code:?? * Procedure Codes:?? * Sign off status: Pending * Provider:??Rylee Alas DNP Date:??11/2023
--- OUTSIDE RECORDS SUMMARY | 2024-07-03 16:37 | XMS_ITS | Clinical Summary ---
Author Organization [facility] Address [address] [place] [phone] Phone Care Team Providers Care Mechanic General Operational Test Name Role Phone Liz Cazares MD Primary [...] and SMOKELESS TOB ACCO SCREENING 10/02/1996 HEPATITIS C SCREENING 10/02/2001 HIV ONE-TIME SCREENING (18-6 5 YEARS) 10/02/2001 INFLUENZA VACCINE (#1) 2023 COVID-19 VACCINE ( - 2023-2 5 season) 2023 SCREENING FOR [...] Medical Devices Not on file Care Teams Mechanic General Operational Test Relationship Specialty Start Date End Date Liz Cazares MD [address] [place] [id number] PCP - General Family Medicine 03/25/22 Additional Source Comments The information contained in this document represents components of the legal health record. It is not the complete legal health record.[facility]
--- OUTSIDE RECORDS SUMMARY | 2024-07-03 16:37 | XMS_ITS ---
Author Organization [facility], [facility] Address [address] [place], [place] [phone] Care Team Providers Care Varitypist Name Role Phone FELIX ZHAO Primary Care Provider Rylee Alas Unavailable [phone] ALLERGIES Allergen (clinical drug ingredient) Drug/Non Drug Allergy documented on EMR Reaction Allergy Type Onset Date Status Methotrexate stomach upset , Severity Observation:Mod erate , Drug Allergy Active lumateperone Caplyta panic attack/ sweating Drug Allergy Active REASON FOR REFERRAL Reason Sleep study to [facility] please. History of KULDIP with needing CPAP- has been lost to follow-up Diagnosis 1 Obstructive sleep ap jesu (G47.33) Referral Organization [facility] Referring Provider First Name Rylee Referring Provider Last Name Bishop Referring Provider Speciality Nurse Miguel mcnamara Referred Organization [facility] Referred Address [address], [place],[phone], Referred Provider Specialty Sleep Medici ne General Notes BOWEN, PAUL 0 08/15/2023 03:03:40 PM >appt request, neuro diagnostic form, demographics, insurance info, referral and office note faxed to [facility] [phone] Referral Priority Routine REASON FOR VISIT f/u [...] HFA 90 mcg/actuation aerosol inhaler *Reorder from [employer] for eRx and Interaction Alerts* 02/01/2022 Active [...] Problem Obstructive sleep apnea (G47.33) Active confirmed 45653453 Problem Gastroesophageal reflux disease without esophagitis (K21.9) Active confirmed 793566569 VITAL SIGNS Blood pressure systolic 142 mm [...] Encounters Encounter Location Date Provider Diagnosis [address], [place] [phone] 08/13/2023 Rylee Alas Obstructive sleep ap jesu [...] Order Date HELICOBACTER PYLORI, UREA BREATH TEST (4 4312) 08/13/2023 Referrals Referral Date Details Sleep study to [facility] please. History of KULDIP with needing CPAP- has been lost to follow-up , [address] [place] [address], [place], [place], [phone], @[employer], Next Appt Details Follow Up: 2 Weeks, Reason: Medication change- tele Progress Notes * RAMIRO LAGUNADOB:1985 (37 yo M)Acc No.[id number]:08/13/2023 Progress Notes Patient:??RAMIRO LAGUNA Provider:??Rylee Alas DNP :1985?Age:37 Y?Sex:Ma le Date:08/13/2023 Phone: Address: [address], [facility] [place], [place] Pcp:FELIX ZHAO Subjective: * Chief Complaints: * ?F/u meds * HPI: ?Patient Care Team:? Therapist- Dr Cta Gore [place]. ?Visit info:? Ramiro presents today for f/u [...] HFA 90 mcg/actuation aerosol inhaler *Reorder from [employer] for eRx and Interaction Alerts*Vitamin D-3 125 [...] HFA 90 mcg/actuation aerosol inhaler *Reorder from [employer] for eRx and Interaction Alerts*Taking Vitamin D-3 [...] day(s), 30.?LAB: HELICOBACTER PYLORI, UREA BREATH TEST (59132) (Ordered for 08/13/2023) Notes: Gastroesophageal reflux disease [...] tele) * Billing Information: * Visit Code:?? 53437 Office Visit, Est Pt., Level 3. * Procedure Codes:?? * Sign off status: Completed true * Provider:??Rylee Alas DNP Date:?? History and Physical Notes * HPI (History of Present Illness) Category Sub-Category Detail Notes Category Not es Patient Care Team Therapist- Dr Cat Gore [place] Examination Category Sub-Category Detail Notes Category Not [...] Rylee Alas , Sleep study t o [facility] please. History of KULDIP with needing CPAP- has been lost to follow-up
--- OUTSIDE RECORDS SUMMARY | 2024-07-03 16:37 | XMS_ITS | Patient Health Record ---
Author Organization N(i)² [employer] [facility] Address [address] [place] [phone] Care Team Providers Care Associate Art Director Name Role Phone CECEFELIX Primary Care Provider [phone] Alas Rylee Unavailable [phone] ALLERGIES Allergen (clinical drug ingredient) Drug/Non Drug Allergy documented on EMR Reaction Allergy Type Onset Date Status Methotrexate stomach upset , Severity Observation:Mod erate , Drug Allergy Active lumateperone Caplyta panic attack/ sweating Drug Allergy Active RESULTS Component Value Reference Range Notes CARDIO IQ(R) APOLIPOPROTEIN B (10413) Reviewed date:08/22/2023 08:20:27 AM Interpretation: Performing Lab:Jacklyn, [facility], [address], QivjsmqjzYR[address] Taz Desir PhD,[facility] Notes/Report: FASTING FASTING:YES FASTING: YES APOLIPOPROTEIN B 70 <90 mg/dL Risk: Optimal <90 mg/dL; Moderate 90-119 mg/dL; High >= 120 mg/dL; Cardiovascular event risk category cut points (optimal, moderate, high) are based on National Lipid Association recommendations- Velasquez TA et al. J of Clin Lipid. 2015; 9: 129-169 and Baron PS et al. Endocr Pract. 2017;23(Suppl 2):1-87. CARDIO IQ(R) APOLIPOPROTEIN A1 (56772) Reviewed date:08/22/2023 08:20:03 AM Interpretation: Performing Lab:Jacklyn, [employer], [address], PujfiuzelWJ[address] Taz Desir PhD,[facility] Notes/Report: FASTING FASTING:YES FASTING: YES APOLIPOPROTEIN A1 142 >114 mg/dL Risk, Male: Optimal >= 115 mg/dL; High < 115 mg/dL; Risk, Female: Optimal >= 125 mg/dL; High <125 mg/dL; Cardiovascular event risk category cut points (optimal, high) are based on the AMORIS study Molly Cortes et al. J Pin Worker Med. 2004;255:188-205. CARDIO IQ(R) HEMOGLOBIN A1c (27209) Reviewed date:08/22/2023 08:20:03 AM Interpretation: Performing Lab:Kamille, [employer].-[employer].[facility] [address], [address], JnppwynylCQ[address] Taz Desir PhD,[facility] Notes/Report: FASTING FASTING:YES FASTING: YES HEMOGLOBIN A1c [...] diagnosis of diabetes in children. According to [place] Diabetes Association (ADA) guidelines, hemoglobin A1c <7.0% represents optimal control in non- diabetic patients. Different metrics may apply to specific patient populations. Standards of Medical Care in Diabetes (ADA). This test was performed on the Emerita kristin c503 platform. Effective 06/25/2023, a change in test platforms from the Alexander Principal Java Software Engineer to the Emerita kristin c503 may have shifted HbA1c results compared to historical results. Based on laboratory validation testing conducted at [facility], the Emerita platform relative to the Alexander [...] Reviewed date:08/22/2023 08:20:03 AM Interpretation: Performing Lab:Jacklyn [employer].[address], [address], GslvjqkzjFB[address] Taz Desir PhD,[facility] Notes/Report: FASTING FASTING:YES FASTING: YES HOMOCYSTEINE 10.0 <11.4 umol/L Homocysteine is increased by functional deficiency of folate or vitamin B12. Testing for methylmalonic acid differentiates between these deficiencies. Other causes of increased homocysteine include renal failure, folate antagonists such as methotrexate and phenytoin, and exposure to nitrous oxide. Georgina J, et al. Aliya Pin Worker Med. 1999;131(5):331-9. Homocysteine is increased by functional deficiency of folate or vitamin B12. Testing for methylmalonic acid differentiates between these deficiencies. Other causes of increased homocysteine include renal failure, folate antagonists such as methotrexate and phenytoin, and exposure to nitrous oxide. Selqing J, et al., Aliya Pin Worker Med. 1999;131(5):331-9. CARDIO IQ(R) HS CRP (47788) Reviewed date:08/22/2023 08:20:03 AM Interpretation: Performing Lab:Kamille [facility] [address], [address], RsmtqrezqVU[address] Taz Desir PhD,[facility] Notes/Report: FASTING FASTING:YES FASTING: YES HS CRP [...] with infection and inflammation. CARDIO IQ(R) INSULIN (69389) Reviewed date:08/22/2023 08:20:03 AM Interpretation: Performing Lab:Z4, [facility] [facility].[address], [address], VgtjqhszjBB[address] Taz Desir PhD,[facility] Notes/Report: FASTING FASTING:YES FASTING: YES INSULIN 6.4 <18.5 uIU/mL CARDIO IQ(R) LIPID PANEL (91 716) Reviewed date:08/22/2023 08:20:03 AM Interpretation: Performing Lab:Z4M, [employer].[address], [address], CjqazjujsZT[address] Taz Desir PhD,[facility] Notes/Report: FASTING FASTING:YES FASTING: YES CHOLESTEROL, TOTAL [...] LDL-C. Isrrael SS et al. JANIS. 2013;310(19): 5227-2830 (http://education.Skyera.com/faq/YFG505) LDL-C is now calculated using the Isrrael-Lau calculation, which is a validated novel method providing better accuracy than the Friedewald equation in the estimation of LDL-C. Isrrael SS et al. JANIS. 2013;310(19): 1204-0220 (http://education.Skyera.com/faq/QLP065) CHOL/HDLC RATIO 2.8 <5.0 calc NON HDL [...] a therapeutic option. CARDIO IQ(R) LIPOPROTEIN (a) (32120) Reviewed date:08/22/2023 08:20:03 AM Interpretation: Performing Lab:Jacklyn, [facility].[address] [place] [address], [address], IjlnonfngXO[address] Taz Desir PhD,[facility] Notes/Report: FASTING FASTING:YES FASTING: YES LIPOPROTEIN (a) 63 <75 nmol/L Risk: Optimal <75 nmol/L; Moderate 75-125 nmol/L; High >125 nmol/L. Cardiovascular event risk category cut points (optimal, moderate, high) are based on Veronica Petit [facility] 2017;69:692-711. CARDIO IQ(R) VITAMIN D, 25 H YDROXY (85023) Reviewed date:08/22/2023 08:26:05 AM Interpretation: Performing Lab:Marco MOISE [employer]/[facility] [facility] , OachbwjidXE[address] Jefe Omalley M.D.,PhD Notes/Report: FASTING FASTING:YES FASTING: [...] ng/mL. For additional information, please refer to http://education.MetaIntell.Triad Semiconductor/faq/TNT990 (This link is being provided for informational/ educational purposes only.) VITAMIN D, 25-OH, D3 27 This test was developed and its analytical performance characteristics have been determined by [employer] [place]. It has not been cleared or approved by the U.S. Food and Drug Administration. This assay has been validated pursuant to the CLIA regulations and is used for clinical purposes. VITAMIN D, 25-OH, D2 <4 This test was developed and its analytical performance characteristics have been determined by [employer] [place]. It has not been cleared or approved by the U.S. Food and Drug Administration. This assay has been validated pursuant to the CLIA regulations and is used for clinical purposes. CBC (INCLUDES DIFF/PLT) (639 9) Reviewed date:08/14/2023 08:31:01 AM Interpretation: Performing Lab:NL2, [place] [facility] Donna Britton Notes/Report: FASTING FASTING:YES FASTING: YES WHITE BLOOD CELL COUNT 5.8 3.8-10.8 Thousand/ uL RED BLOOD CELL COUNT 4.45 4.20-5.80 Million/uL HEMOGLOBIN 14.4 13.2-17.1 g/dL HEMATOCRIT 41.1 38.5-50.0 % MCV 92.4 80.0-100.0 fL MCH 32.4 27.0-33.0 pg MCHC 35.0 32.0-36.0 g/dL RDW 12.7 11.0-15.0 % PLATELET COUNT 143 140-400 Thousand/uL MPV 12.7 7.5-12.5 fL ABSOLUTE NEUTROPHILS 3376 4624-7545 cells/uL ABSOLUTE LYMPHOCYTES 2541 814-2942 cells/uL ABSOLUTE MONOCYTES 447 200-950 cells/uL ABSOLUTE EOSINOPHILS 17 15-500 cells/uL ABSOLUTE BASOPHILS 17 0-200 cells/uL NEUTROPHILS 58.2 LYMPHOCYTES 33.5 MONOCYTES 7.7 EOSINOPHILS 0.3 BASOPHILS 0.3 COMPREHENSIVE METABOLIC PANE L (22488) Reviewed date:08/14/2023 12:21:37 PM Interpretation: Performing Lab:2, [place] [facility] Donna Britton Notes/Report: FASTING FASTING:YES FASTING: [...] ) Reviewed date:08/14/2023 11:54:19 AM Interpretation: Performing Lab:[employer], [place] [facility] Donna Britton Notes/Report: FASTING FASTING:YES FASTING: YES T3 UPTAKE 30 22-35 % T4 (THYROXINE), TOTAL 5.9 4.9-10.5 mcg/dL FREE T4 INDEX (T7) 1.8 1.4-3.8 TSH 2.78 0.40-4.50 mIU/L THYROID PEROXIDASE AND THYRO GLOBULIN ANTIBODIES (7260) Reviewed date:08/14/2023 03:01:46 PM Interpretation: Performing Lab:[employer] [place] [facility] Donna Britton Notes/Report: FASTING FASTING:YES FASTING: YES THYROGLOBULIN ANTIBODIES <1 < or = 1 IU/mL THYROID PEROXIDASE ANTIBODIES 1 <9 IU/mL URIC ACID (905) Reviewed date:08/14/2023 11:54:19 AM Interpretation: Performing Lab:Smallaa, [place] [facility] Donna Britton Notes/Report: FASTING FASTING:YES FASTING: YES URIC ACID 4.4 4.0-8.0 mg/dL Therapeutic ta rget for gout patients: <6.0 mg/dL URINALYSIS, COMPLETE W/REFLE X TO CULTURE (2326) Reviewed date:08/14/2023 08:30:49 AM Interpretation: Performing Lab:NL2, [place] [facility] [address] [facility] Donna Britton Notes/Report: FASTING FASTING:YES FASTING: [...] REASON FOR REFERRAL Reason Sleep study to [facility] please. History of KULDIP with needing CPAP- has been lost to follow-up Diagnosis 1 Obstructive sleep ap jesu (G47.33) [facility] Referring Provider First Name Rylee Referring Provider Last Name Bishop Referring Provider Speciality Nurse Miguel doverioner Referred Organization [facility] Referred Address [address] [place] [phone], Referred Provider Specialty Sleep Medici ne General Notes PAUL WISEMAN 0 08/15/2023 03:03:40 PM >appt request, neuro diagnostic form, demographics, insurance info, referral and office note faxed to [facility] [phone] Referral Priority Routine MEDICATIONS Medication SIG (Take, [...] HFA 90 mcg/actuation aerosol inhaler *Reorder from [employer] for eRx and Interaction Alerts* 02/01/2022 Active [...] Notes Problem Mixed hyperlipidemia (E78.2) Active confirmed 001970517 Problem Bipolar II disorder (F31.81) Active confirmed 82235703 Problem Essential (primary) hypertension (I10) Active confirmed 35771537 Problem Vitamin D deficiency (E55.9) Active confirmed 26390190 Problem Primary hypertension (I10) Active confirmed 85720297 Problem Gastroesophageal reflux disease without esophagitis (K21.9) Active confirmed 308500370 Problem Psoriasis (L40.9) Active confirmed 9014 002 Problem Obstructive sleep apnea (G47.33) Active confirmed 48481293 Problem Psoriatic arthritis (L40.50) Active confirmed 307058670 VITAL SIGNS Heart Rate 69 /min 08/13/2023 [...] N/A Encounters Encounter Location Date Provider Diagnosis [address] [id number] 11/28/2023 Rylee Alas [address] [id number] 08/13/2023 Rylee Alas Obstructive sleep ap jesu G47.33 ; Gastroesophageal reflux disease without esophagitis K21.9 ; Essential (primary) hypertension I10 and Encounter for screening for depression Z13.[address] [id number] 08/30/2023 Rylee Alas Psoriasis L40.9 ; Primary hypertension I10 ; Mixed hyperlipidemia E78.2 ; Vitamin D deficiency E55.9 ; Encounter to discuss test results Z71.2 and Gastroesophageal reflux disease without esophagitis K21.[address] [id number] 08/05/2023 Rylee Alas Mixed hyperlipidemia E78.2 ; [...] Date HELICOBACTER PYLORI, UREA BREATH TEST ( 6210) 08/13/2023 Insurance Providers Payer Name Payer Address Payer Phone Subscriber Number Group Number Insured Name Patient Relationship to Insured Coverage Start Date Coverage End Date [address] [place], [place] [phone] [id number] ÁLVARO LAGUNA Self - patient is the insured MEDICAL (GENERAL) HISTORY Medical History History ICD Code asthma - mild intermittent anxiety autoimmune disorder depression KULDIP with CPAP hyperlipidemia psoriatic arthritis Surgical History Surgery Date(Month/Year) vasectomy 26 broken bones in past (Sports)
--- OUTSIDE RECORDS SUMMARY | 2024-07-03 16:37 | XMS_ITS | Encounter Summary ---
Author Organization [facility] Address [address] [facility] [address] [place] [phone] Phone Care Team Providers Care Geriatrics Physician Name Role Phone Liz Cazares MD Primary Care Provider Encounter Details Date Type Department Care Team (Late st Contact Info) Description 03/25/2022 Procedure Pass [facility], Ct Scan - [address] [address] Social History Tobacco Use Types Packs/Day Years [...] documented as of this encounter Care Teams Geriatrics Physician Relationship Specialty Start Date End Date Liz Cazares MD [address] [place] [phone] PCP - General Family Medicine 03/25/22 documented as of this encounter Additional Source Comments The information contained in this document represents components of the legal health record. It is not the complete legal health record.[facility]
--- OUTSIDE RECORDS SUMMARY | 2024-07-03 16:38 | XMS_ITS | Data Portability ---
Author Organization [facility], [address] Address [address] [place] [address] Care Team Providers Care Meat Inspector Name Role Phone CARON GREENWOOD Primary Care Provider [phone] Assessment No assessment recorded. Plan of Treatment Reminders Order Date Submit Date Provider Last Modified By Organization Details Last Modified Time Details Appointments None recorded. Lab None recorded. Referral None recorded. Procedures None recorded. Surgeries None recorded. Imaging None recorded. Medication Orders Polytrim 10,000 unit-1 mg/mL eye drops 2021 [facility], [address] [place], [address], 12:02:45 amoxicillin 875 mg-potassiu m clavulanate 125 mg tablet 2021 [facility], [address] [place], [address], 12:02:44 benzonatate 100 mg capsule 2021 [facility], [address] [place], [address], 12:02:45 prednisone 20 mg tablet 2021 [facility], [address] [place], [address], 12:02:43 albuterol sulfate HFA 90 mcg/actuati on aerosol inhaler 2021 [facility], [address] [place], [address], 12:02:44 Patient TargetsNo targets recorded. Patient InstructionsNo instructions recorded. Reason for Referral None Reported. Problems Name Problem SNOMED Code Status Onset Date Resolution Date Notes Provider Name and Address Organization Details Recorded Time Psoriatic arthritis 467164782 Active Claritza Jolivet null, [place] - [facility] 11:28:11 Psoriasis 1082701 Active Claritza Jolivet null, PA - [facility] 11:28:09 Mixed anxiety and depressive disorder 724412930 Active Claritza Jolivet null, PA - [facility] 11:28:27 Problem Notes None recorded. Procedures Surgical History Date Name Laterality Status Provider Name and Address Organization Details Recorded Time vasectomy completed Claritzayancy Merazt PA - [facility] 03/25/2022 11:29:08 Imaging Results None recorded. Procedure Notes None recorded. Medical Equipment None Reported. Allergies Allergen ID Allergen Name Allergen Category Reaction Reaction Severity Criticality Documentation Date Start Date Code Code System Note Provider Name and Address Organization Details Recorded Time 7900 Caplyta medicatio n Not available Not available Not available 03/25/2022 71013 08 RxNorm Claritza Merazt null, PA - [facility] 11:26:42 Medications Name Sig Start Date Stop Date Status Note LastModified by Organization Details LastModified Time prednisone 20 mg tablet Take 2 tablets every day by oral route for 5 days. 2021 active Not Available Not Available Not Avai lable divalproex 500 mg tablet,gene yed release TAKE 1 TABLET BY MOUTH EVERY MORNING AND 2 TABLETS AT BEDTIME active Not Available Not Available No t Available propranolol 10 mg tablet TAKE 1 TABLET BY MOUTH TWICE A DAY NEEDED active Not Available Not Available No t Available methotrexat e sodium 2.5 mg tablet TAKE 6 TABLETS BY MOUTH ONCE A WEEK AT BEDTIME 03/25 completed Not Available Not Available Not Available benzonatate 100 mg capsule Take 1 capsule 3 times a day by oral route. 2021 active Not Available Not Available Not Avai lable erythromyci n 5 mg/gram (0.5 %) eye ointment APPLY TO AFFECTED EYE ONCE DAILY FOR 10 DAYS. active Not Available Not Available No t Available Polytrim 10,000 unit-1 mg/mL eye drops INSTILL 1 DROP INTO AFFECTED EYE(S) BY OPHTHALMI C ROUTE EVERY 6 HOURS 2021 active Not Available Not Available Not Avai lable folic acid 1 mg tablet TAKE 1 TABLET BY MOUTH EVERY DAY WITH BREAKFAST active Not Available Not Available No t Available mupirocin 2 % topical ointment APPLY TO THE AFFECTED AREAS TWICE A DAY FOR 2 WEEKS TOPICALLY 03/25 completed Not Available Not Available Not Available clobetasol 0.05 % topical ointment APPLY TO THE AFFECTED AREAS ON THE ARMS AND FEET TWICE DAILY FOR TWO WEEKS , BREAK ONE WEEK, REPEAT 03/25 completed Not Available Not Available Not Available albuterol sulfate HFA 90 mcg/actuati on aerosol inhaler Inhale 2 puffs every 4 hours by inhalatio n route for 7 days. 2021 active Not Available Not Available Not Avai lable amoxicillin 875 mg-potassiu m clavulanate 125 mg tablet Take 1 tablet every 12 hours by oral route for 10 days. 2021 active Not Available Not Available Not Avai lable rosuvastati n 10 mg tablet TAKE 1 TABLET BY MOUTH EVERY DAY 03/25 completed Not Available Not Available Not Available rosuvastati n 20 mg tablet TAKE 1 TABLET BY MOUTH EVERY DAY active Not Available Not Available No t Available Vitals Date Recorded Body height Body mass index (BMI) Body weight Body temperature Respiratory rate Oxygen saturation Oxygen saturation in Arterial blood by Pulse oximetry Heart rate Systolic blood pressure Diastolic blood pressure Provider Name and Address Organization Details Last Updated DateTime 2 170.18 cm 36 kg/m2 590329. 25 g 96.9 [degF] 20 /min 98 % 98 % 97 /min 135 mm[Hg] 97 mm[Hg] Claritza Augustin PA - [facility] 11:30:00 Social History Question Answer Notes LastModified by Organizat ion Details LastModified Time Tobacco Smoking Status Never Smoker FLACO Banuelos - [facility] 03/25/2022 11:28:57 What Is Your Level Of Alcohol Consumption? None Information not available 03/25/2022 Which Illicit Or Recreational Drugs Have You Used? Marijuana Information not available 03/25/2022 Have You Had Direct Contact, Or Contact During Intimacy, With Monkeypox Rash, Scabs, Or Body Fluids From A Person With Monkeypox? No Information not available 03/25/2022 Do You Use Any Illicit Or Recreational Drugs? Yes Information not available 03/25/2022 Have You Recently Traveled Abroad? No Information not available 03/25/2022 Do You Or Have You Ever Used Any Other Forms Of Tobacco Or Nicotine? No Information not available 03/25/2022 Sex: Unknown Functional Status None recorded. Mental Status None recorded. Family History Relationship Description Onset Age of this Age Resolved Age Notes LastModified by Organization Details LastModified Time Father No current problems or disability Not available 03/25 11:28:38 Mother No current problems or disability Not available 03/25 11:28:38 Medical History No medical history recorded. Past Encounters Encounter ID Performer Location Encounter Start Date Encounter Closed Date Diagnosis/Indication Diagnosis SNOMED-CT Code Diagnosis ICD10 Code Diagnosis Note [id number] [address] [place] [address] 04/20/2020 10:10:11 04/20/2020 18:02:52 [id number] [place] [address] [place] [address] 03/25/2022 11:02:41 03/25/2022 12:12:22 External hordeolum 6236140 H00.019 Acute sinusitis 57150998 J01.90 Acute bronchitis 9963797 2 J20.9 Health Concerns Section Related Observation LastModified by Organization Detai ls LastModified Time None Recorded Concern Status LastModified by Organization Details LastModified Time None Recorded Advance Directives Directive None Recorded Payers Encounter Date Sequence Insurance Name Policy Number Policy Ngo Covered Member ID Ngo Member ID Guarantor Name 04/20/2020 1 [facility] [id number] Ramiro Augustin [id number] Ramiro Augustin 03/25/2022 1 [facility] Ramiro Augustin [id number] Ramiro Augustin Notes Date Note Type Note Provider Name and Address Organization Details Recorded Time 03/25/2022 text/html Eye problemsRepo rted bypatient.Notes:Bilate ral eye swelling and upper and lower eye lids . swollen with purulent drainage x 2 days. Cain James NP [address] [place], [address], [place] - [facility] 03/25/2022 12:15:06
== END 2024-07-03 15:48 | disposition home or self-care (01) ==
LOC: HO.HPS 15:31
PROVIDERS: PCP Physician Assistant Medical; Visit Provider Internal Medicine Pulmonary Disease
DX: J45.909 Unspecified asthma, uncomplicated (principal); Z91.09 Other allergy status, other than to drugs and biological substances
CPT/HCPCS: 99214